=== PATIENT | female | born 1940 | race Hispanic/Latino ===

== ENCOUNTER 2016-03-27 07:57 | Day surgery (SDC) | payer MEDICARE ==
[2016-03-27] MEDS ORDERED: DIPRIVAN 10 MG/ML IV ONE ×3 (08:41→08:42)
[2016-03-27] MEDS ORDERED: NACL 0.9% 1000 ML 1,000 ML IV SCH (09:00)
[2016-03-27] MEDS ORDERED: XYLOCAINE MPF 2% ONE (09:30)
--- NOTE | 2016-03-27 09:32 | Anesthesia Consultation ---
Anesthesia Consult and Med Hx Date of service: 03/27/16 - Airway Anesthetic Teeth Evaluation: Edentulous ROM Head & Neck: Adequate Mental/Hyoid Distance: Adequate Mallampati Class: Class III Intubation Access Assessment: Probably Good - Pulmonary Exam CTA: Yes - Cardiac Exam Cardiac Exam: RRR - Pre-Operative Health Status ASA Pre-Surgery Classification: ASA3 Proposed Anesthetic Plan: MAC - Pulmonary Hx Smoking: Yes (1ppd x 52 years, now 1 pk per two weeks last 2 years) Hx Asthma: Yes (Inhaler this AM) SOB: Yes Hx Pneumonia: Yes Hx Sleep Apnea: No - Cardiovascular System Hx Hypertension: Yes (Losartan) Hx Heart Attack/AMI: No Hx Angina: Yes (NTG SL 03/26) - Central Nervous System Hx Seizures: No 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
--- NOTE | 2016-03-27 09:33 | Anesthesia Day of Surgery ---
Anesthesia Day of Surgery - Day of Surgery Patient Examined: Yes Patient H&P Reviewed: Yes Patient is NPO: Yes
[2016-03-27] MEDS ORDERED: WATER FOR IRRIG STERILE IR ONE (09:47)
--- NOTE | 2016-03-27 10:21 | Short Stay Summary ---
Short Stay Documentation Date of service: 03/27/16 - History H&P: obtained from office - Allergies and Medications Current Medications: Allergies No Known Allergies Allergy (Verified 03/26/16 12:41) Home Medications Medication Instructions Recorded Confirmed Last Taken Type Colesevelam [Welchol] 1 each PO BID 02/01/13 02/10/16 1 Day Ago History Aspirin [Aspirin TAB] 81 mg PO QDAY #30 tablet 07/22/14 02/10/16 1 Day Ago Rx Atorvastatin [Lipitor] 40 mg PO QHS #30 tab 07/22/14 02/10/16 1 Day Ago Rx Clopidogrel Bisulfate [Plavix] 75 mg PO DAILY #30 tablet 07/22/14 02/10/16 1 Day Ago Rx Cyclobenzaprine [Flexeril 10 MG 10 mg PO PRN PRN 07/22/14 02/10/16 1 Day Ago History TAB] ALBUTEROL Inhaler [Proair] 2 puff IH QID PRN 02/10/16 02/10/16 1 Day Ago History Acetaminophen [Tylenol Arthritis] 650 mg PO QID 02/10/16 02/10/16 1 Day Ago History Insulin Lispro Prot/Lispro 18 unit SQ ACHS 02/10/16 02/10/16 1 Day Ago History [HumaLOG MIX 75/25] Losartan [Cozaar] 100 mg PO DAILY 02/10/16 02/10/16 1 Day Ago History Nitroglycerin [Nitro Dur] 0.4 mg TD QDAY 02/10/16 02/10/16 1 Week Ago History Nitroglycerin [Nitrostat] 0.4 mg SL Q5M PRN 02/10/16 02/10/16 1 Week Ago History Pantoprazole [Protonix] 40 mg PO QDAY 02/10/16 02/10/16 1 Day Ago History Umeclidinium Brm/Vilanterol Tr 1 each IH QDAY 02/10/16 02/10/16 1 Day Ago History [Anoro Ellipta 62.5-25 Mcg INH] Active Medications Sodium Chloride (Nacl 0.9% 1000 Ml) 1,000 mls @ 50 mls/hr IV DIRECT JACKIE Last Admin: 03/27/16 09:03 Dose: 50 mls/hr - Brief post op/procedure progress note Date of procedure: 01/11/17 Findings: reports dictated Estimated blood loss: none Pathology: list (1. antral biopsies for h.pylori, 2. Random colon biopsies for microscopic colitis) Specimen disposition: to lab Condition: stable - Disposition Condition at discharge: Good Disposition: DISCHARGED TO HOME OR SELFCARE - Discharge Diagnoses (1) Nausea & vomiting Status: Acute (2) Chronic diarrhea Status: Acute Short Stay Discharge Plan Activity: other (no driving for 24 hours, restart Plavix after 3 days) Weight Bearing Status: Full Weight Bearing Diet: advance as tolerated
--- NOTE | 2016-03-27 10:28 | Operative Report ---
Operative Report Operative Report: Date of procedure: 03/27/2016 Procedure: Esophagogastroduodenoscopy with biopsies of the stomach antrum for H. pylori Preprocedure diagnosis: Chronic nausea vomiting and weight loss. Post procedure diagnosis: Mild erosive antral gastritis. 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 Small hiatus hernia. Distal esophagitis. Endoscopist: Dr. Cao Anesthesia: Monitored anesthesia care per anesthesia department Medications: Propofol per anesthesia. Estimated blood loss: Minimal. After careful discussion of the nature and purpose of the procedure as well as details the technique risks benefits and alternatives consent was obtained. The patient was placed in the left lateral decubitus position and medicated per anesthesia. The tip of the Holganix EQ 570 video scope was passed per orum under direct vision into the esophagus and advanced into the stomach and descending duodenum. There were 2 small AVMs approximately 1 mm in size in the second portion of the duodenum. Otherwise the descending duodenum the duodenal bulb and pylorus were symmetrical and normal. The scope was withdrawn into the stomach and the stomach then gently insufflated with air. The antrum reveals patchy erosions but no deep ulcers. There was no outlet obstruction. No retained food was noted. The stomach was further insufflated and the scope was then retroflexed and partially withdrawn. The cardia, fundus, and body of the stomach were within normal limits and easily distensible.The scope was then withdrawn in the forward position. The esophagogastric junction was at 36 cm. A small hiatus hernia was present. It was mild inflammation at the Z line area.. The esophageal body was normal throughout. The procedure was was well tolerated and the patient was observed in recovery. Impressions: Mild erosive gastritis without outlet obstruction. 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 Small hiatus hernia. Mild distal esophagitis. Plan: Begin pantoprazole. She will take this in the morning and move her Plavix to an evening regimen. The patient will call me in a week to discuss the pathology report and further management. She may need small bowel imaging to exclude a more distal partial obstruction. Electronically signed: Donn Cao MD
--- NOTE | 2016-03-27 10:30 | Operative Report ---
Operative Report Operative Report: Date of procedure: 03/27/2016 Preprocedure diagnosis: Diarrhea, chronic Post procedure diagnosis: Normal-appearing colon and terminal ileum. Procedure: Colonoscopy to the cecum with random biopsies of the colon Endoscopist: Dr. Cao Anesthesia: Monitored anesthesia care per anesthesia department Estimated blood loss: 0 Medications: Monitored anesthesia care. See separate report by anesthesia for details. After careful discussion of the nature and purpose of the procedure as well as details of the technique risks benefits and alternatives the patient gave consent. Please see recent history and physical from the office. The patient was placed in the left lateral decubitus position and medicated per anesthesia. A rectal exam was performed sphincter tone was normal there were no masses palpable. The [employer] 570 scope was passed transanally and advanced under continuous direct vision without difficulty to the cecum. The colon was well prepared. The cecum was normal. Ileocecal valve was normal in appearance. The scope was passed through the valve and the distal 5-10 cm of ileum inspected which appeared normal. The ascending colon was normal and on forward and retroflexed views. The transverse colon, descending colon, and sigmoid colon were normal. The rectum was normal on forward and retroflexed views. Random biopsies were taken throughout the colon to assess for possible microscopic colitis. The procedure was well-tolerated overall and the patient was observed in recovery. Conclusions: Normal colonoscopy to the cecum. Normal terminal ileum. Plan: Await biopsies to assess for microscopic colitis. The patient called the office in 1 week. Consider small bowel series to exclude late onset inflammatory bowel disease. Signed electronically: Donn Cao M.D.
[2016-03-27 10:44] VITALS: BP 166/82
--- NOTE | 2016-03-27 12:26 | Post Anesthesia Evaluation ---
- Post Anesthesia Evaluation Patient Participated: Yes Airway Patent: Yes Stable Respiratory Function: Yes Nausea/Vomiting: No Temp > 96.8F: Yes Pain Manageable: Yes Adequeate Hydration: Yes Anesthesia Complications: No
== END 2016-03-27 07:58 | disposition home or self-care (01) ==
LOC: GIO 07:57
PROVIDERS: ATTEND Internal Medicine Gastroenterology
DX: K52.9 Noninfective gastroenteritis and colitis, unspecified (principal); K29.50 Unspecified chronic gastritis without bleeding; K21.0 Gastro-esophageal reflux disease with esophagitis; K55.20 Angiodysplasia of colon without hemorrhage; K44.9 Diaphragmatic hernia without obstruction or gangrene; F41.9 Anxiety disorder, unspecified; M19.90 Unspecified osteoarthritis, unspecified site; J45.909 Unspecified asthma, uncomplicated; E11.9 Type 2 diabetes mellitus without complications; I10 Essential (primary) hypertension; D64.9 Anemia, unspecified; F17.210 Nicotine dependence, cigarettes, uncomplicated; Z90.710 Acquired absence of both cervix and uterus; Z90.49 Acquired absence of other specified parts of digestive tract; Z98.890 Other specified postprocedural states; Z83.49 Family history of other endocrine, nutritional and metabolic diseases; Z83.3 Family history of diabetes mellitus; Z86.73 Personal history of transient ischemic attack (TIA), and cerebral infarction without residual deficits; Z82.49 Family history of ischemic heart disease and other diseases of the circulatory system; Z80.1 Family history of malignant neoplasm of trachea, bronchus and lung; Z87.01 Personal history of pneumonia (recurrent)
CPT/HCPCS: 43239; 45380; 82962; 88305; 88342; J2704; J7030

== ENCOUNTER 2016-08-30 08:50 | Outpatient (CLI) | payer MEDICARE ==
--- NOTE | 2016-08-30 14:30 | Mammography Report ---
BILATERAL DIGITAL SCREENING MAMMOGRAM with CAD: 08/30/16 08:50:00 CLINICAL: Routine screening. COMPARISON:07/07/15 and annual mammograms going back to 2008. FINDINGS: The breasts are almost entirely fatty. Left outer asymmetry in architectural distortion on the CC view requires additional imaging. No mass or suspicious calcifications. The right breast is negative. IMPRESSION: Left asymmetry and architectural distortion requiring further workup. BI-RADS CATEGORY: 0 -- Additional Imaging Evaluation Required RECOMMENDATION: Recall for left mediolateral , exaggerated CC and spot compression CC views and left breast ultrasound if needed. ACR BI-RADS MAMMOGRAPHIC CODES: 0 = Needs additional imaging evaluation; 1 = Negative; 2 = Benign; 3 = Probably benign; 4 = Suspicious; 5 = Malignant; 6 = Known biopsy-proven malignancy COMMENT: 1. Dense breast tissue, i.e., adenosis, fibrocystic changes, etc., may obscure an underlying neoplasm. 2. Approximately 10% of cancers are not detected with mammography. 3. A negative mammography report should not delay biopsy if a clinically suspicious mass is present. COMMENT: Patient follow-up letters are generated via our [employer] application.
== END 2016-08-30 08:51 | disposition home or self-care (01) ==
LOC: MAMMO 08:50
PROVIDERS: ATTEND Internal Medicine
DX: Z12.31 Encounter for screening mammogram for malignant neoplasm of breast (principal); I20.9 Angina pectoris, unspecified; I10 Essential (primary) hypertension; J45.909 Unspecified asthma, uncomplicated; F17.200 Nicotine dependence, unspecified, uncomplicated
CPT/HCPCS: 77067; G0202

== ENCOUNTER 2016-09-05 14:40 | Outpatient (CLI) | payer MEDICARE ==
--- NOTE | 2016-09-06 08:25 | Mammography Report ---
LEFT DIGITAL DIAGNOSTIC MAMMOGRAM : 09/05/16 14:40:00 CLINICAL: Recalled for asymmetry and architectural distortion. COMPARISON:08/30/16 screening FINDINGS: ML and spot compression and CC views were performed and demonstrate no asymmetry or architectural distortion. IMPRESSION: Negative Mammogram. BI-RADS CATEGORY: 1 -- Negative RECOMMENDATION: Routine mammographic screening in one year. ACR BI-RADS MAMMOGRAPHIC CODES: 0 = Needs additional imaging evaluation; 1 = Negative; 2 = Benign; 3 = Probably benign; 4 = Suspicious; 5 = Malignant; 6 = Known biopsy-proven malignancy COMMENT: 1. Dense breast tissue, ie., adenosis, fibrocystic changes, etc., may obscure an underlying neoplasm. 2. Approximately 10% of cancers are not detected with mammography. 3. A negative mammography report should not delay biopsy if a clinically suspicious mass is present. COMMENT: Patient follow-up letters are generated via our [employer] application.
== END 2016-09-05 14:41 | disposition home or self-care (01) ==
LOC: MAMMO 14:40
PROVIDERS: ATTEND Internal Medicine
DX: R92.8 Other abnormal and inconclusive findings on diagnostic imaging of breast (principal); I10 Essential (primary) hypertension; E11.9 Type 2 diabetes mellitus without complications; E78.00 Pure hypercholesterolemia, unspecified; J45.909 Unspecified asthma, uncomplicated; D64.9 Anemia, unspecified; F17.200 Nicotine dependence, unspecified, uncomplicated
CPT/HCPCS: G0206-LT

== ENCOUNTER 2016-11-19 10:37 | Outpatient (CLI) | payer MEDICARE ==
--- NOTE | 2016-11-19 12:50 | XRay Report ---
RIGHT KNEE, 3 views: History: Multiple joint pain, right knee pain. The bony architecture is intact without evidence of fracture or dislocation. No significant soft tissue abnormality is seen. IMPRESSION: Right knee within normal limits.
--- NOTE | 2016-11-19 12:55 | XRay Report ---
BILATERAL HAND, 3 VIEWS History: Multiple joint pain, bilateral hand pain Findings: Mild osteopenia is suspected. There is no evidence for fracture, erosive joint pathology or bony destruction. Mild to moderate osteoarthritic changes are identified throughout both hands. The left third metacarpophalangeal joint is the most affected joint in the hands. The soft tissues are unremarkable. Impression: Osteopenia. Osteoarthritic changes.
--- NOTE | 2016-11-19 12:57 | XRay Report ---
BILATERAL WRISTS, 3 VIEWS History: Multiple joint pain, bilateral wrist pain. Findings: Mild osteopenia is noted. No acute osseous findings or joint pathology is identified. No ligamentous injury is suggested. The soft tissues are within normal limits. Impression: Osteopenia. Otherwise, unremarkable bilateral wrists.
--- NOTE | 2016-11-19 13:06 | XRay Report ---
CERVICAL SPINE, 5 VIEWS History: Multiple joint pain, neck pain. Findings: No comparison. Osteopenia is evident. There is moderate degenerative disc disease at C3-4, C4-5 and C5-6. No evidence for facture, bone lesion or malalignment. Mild diffuse facet arthropathy is also noted. The oblique images demonstrate no evidence for high-grade neural foraminal narrowing. The dens is intact. The prevertebral soft tissues are normal thickness. Impression: Osteopenia. Cervical spondylosis.
--- NOTE | 2016-11-20 08:08 | XRay Report ---
XRAY LUMBAR SPINE WITH OBLIQUES 5 VIEWS: 11/19/16 10:37:00 CLINICAL: Back pain. FINDINGS: Normal vertebral body height and alignment. No fracture. Disc space narrowing at L5-S1 and to a lesser degree at L4-5. Endplate sclerosis at L4-5 and L5-S1. Bilateral facet joint sclerosis from L1-2 through L5-S1 but worse from L3-4 through L5-S1. Small anterior osteophytes at L2-3, L4-5 and L5-S1. Right neural foraminal narrowing at L3-4 and L4-5. The pedicles are intact. Mild bilateral SI joint sclerosis. No erosions. Extensive calcification of the abdominal aorta and renal vasculature. Surgical clips in the right upper quadrant. IMPRESSION: 1. Bilateral facet joint arthropathy from L1-2 through L5-S1 but worse from L3-4 through L5-S1. 2. Right neural foraminal narrowing at L3-4 and L4-5. 3. L5-S1 degenerative disc disease and a lesser degree of degenerative disc disease at L4-5.
== END 2016-11-19 10:38 | disposition home or self-care (01) ==
LOC: XRAY 10:37
PROVIDERS: ATTEND Nurse Practitioner Family
DX: M51.37 Other intervertebral disc degeneration, lumbosacral region (principal); M50.31 Other cervical disc degeneration, high cervical region; M50.321 Other cervical disc degeneration at C4-C5 level; M12.88 Other specific arthropathies, not elsewhere classified, other specified site; M50.322 Other cervical disc degeneration at C5-C6 level; M85.88 Other specified disorders of bone density and structure, other site; M47.892 Other spondylosis, cervical region; M19.141 Post-traumatic osteoarthritis, right hand; M19.142 Post-traumatic osteoarthritis, left hand; I70.0 Atherosclerosis of aorta; I10 Essential (primary) hypertension; E78.00 Pure hypercholesterolemia, unspecified; E11.9 Type 2 diabetes mellitus without complications; J18.9 Pneumonia, unspecified organism; F17.200 Nicotine dependence, unspecified, uncomplicated
CPT/HCPCS: 72040; 72110

== ENCOUNTER 2016-12-16 10:15 | Outpatient (CLI) | payer MEDICARE ==
[2016-12-16 10:40] LABS: Blood Urea Nitrogen 10 mg/dL (7-17)
--- NOTE | 2016-12-16 14:48 | Magnetic Resonance Report ---
MRA ABDOMEN WITH AND WITHOUT CONTRAST History: Diarrhea. Technique: Multisequence, multiplanar MRI before and after IV gadolinium. 3-dimensional MRA. Rotational MIP imaging. Findings: No relevant comparison. This exam is slightly limited by patient breathing motion artifact. The heart is normal size. The visualized descending thoracic aorta and abdominal aorta are normal caliber with no evidence of dissection, aneurysm or stenosis. The celiac axis, SMA, SURI and bilateral single renal arteries are widely patent with less than 20% stenosis. The visualized bilateral iliac arteries are patent with less than 30% stenosis. The liver, pancreas, spleen and adrenal glands are unremarkable. Cholecystectomy changes are evident. There are multiple bilateral renal cysts. No renal mass or hydronephrosis. The bowel loops are grossly normal. No evidence for ascites, bulky adenopathy or inflammatory changes. Impression: Unremarkable MRA of the abdomen.
== END 2016-12-16 10:16 | disposition home or self-care (01) ==
LOC: MRI 10:15
PROVIDERS: ATTEND Internal Medicine Gastroenterology
DX: E11.9 Type 2 diabetes mellitus without complications (principal); N28.1 Cyst of kidney, acquired; R19.7 Diarrhea, unspecified; R63.4 Abnormal weight loss; I10 Essential (primary) hypertension; Z90.49 Acquired absence of other specified parts of digestive tract
CPT/HCPCS: 36415; 82565; 84520; A9577; C8902; 74185

== ENCOUNTER 2017-04-24 08:03 | Outpatient (CLI) | payer MEDICARE ==
--- NOTE | 2017-04-25 08:52 | PET Report ---
PET/CT:04/24/17 08:03:00 CLINICAL: Right pulmonary nodule. RADIOPHARMACEUTICAL: 13.22 mCi F18-FDG. COMPARISON: PET/CT TECHNIQUE- Following intravenous injection of F-18 FDG and an approximately 60 minute uptake period, CT and PET images from the mid skull to the upper thighs were acquired with the patient in the fasted state. No contrast was administered. The CT protocol used for this PET CT study is designed for attenuation correction and anatomic localization of PET abnormalities. This beer cooler CT is not desired to produce and cannot replace, [id number] diagnostic CT scans with specific imaging protocols for different body parts and indications. Plasma glucose at the time of this test: 141g/dl. The standardized uptake values (SUV) are normalized to patient body weight and indicate the highest activity concentration (SUV max) in a given disease site. FINDINGS: Brain--Physiologic FDG uptake in the visualized regions of the brain. Neck--Physiologic FDG uptake . Chest--Physiologic FDG uptake in mediastinal blood pool and myocardium. Lungs--No abnormal uptake. An irregular 9 mm right lobe superior segment non-activity evident lung nodule with SUV 0.9. A non-FDG avid 5 mm right middle lobe lung nodule. Pleura/pericardium--No abnormal uptake. No pleural effusion. Thoracic nodes--No abnormal uptake. No lymphadenopathy. Hepatobiliary--No abnormal uptake. Liver background SUV mean, as a reference for comparing FDG studies, is 3.1 . No liver mass. Status post cholecystectomy. Spleen--No abnormal uptake. Pancreas--No abnormal uptake. Adrenal Glands--No abnormal uptake. Kidneys/Ureters/Bladder--No abnormal uptake. Left renal cysts measuring 4.4, 2.6 and 3.7 cm. Abdominopelvic Nodes--No abnormal uptake. Bowel/Peritoneum/Mesentery--No abnormal uptake. Pelvic organs--No abnormal uptake. Status post hysterectomy. Bones/Soft Tissues--No abnormal uptake. No suspicious bone lesion. IMPRESSION- 1. Non-FDG avid right lung nodules. The largest measures 9 mm in the superior segment of the right lower lobe. Consider CT percutaneous needle biopsy of the largest nodule. 2. Status post cholecystectomy. 3. Benign left renal cyst. 4. Status post total abdominal hysterectomy.
== END 2017-04-24 08:04 | disposition home or self-care (01) ==
LOC: PET 08:03
PROVIDERS: ATTEND Internal Medicine Pulmonary Disease
DX: R91.8 Other nonspecific abnormal finding of lung field (principal); N28.1 Cyst of kidney, acquired; Z90.710 Acquired absence of both cervix and uterus; Z90.49 Acquired absence of other specified parts of digestive tract; Z79.899 Other long term (current) drug therapy
CPT/HCPCS: 78815; 82962; A9552

== ENCOUNTER 2017-07-06 19:25 | Emergency (ER) | payer MEDICARE ==
[2017-07-06 19:42] VITALS: BP 161/74
[2017-07-06 20:04] LABS: Hematocrit 38.3 % (30.3-42.9); Hemoglobin 13.4 gm/dl (10.1-14.3); Mean Corpuscular HGB Conc 35 % (30-34); Mean Corpuscular Hemoglobin 33 pg (28-32); Mean Corpuscular Volume 93 fl (79-97); Platelet Count 337 K/mm3 (140-440); Red Blood Count 4.13 M/mm3 (3.65-5.03)
[2017-07-06 20:23] LABS: Calcium 9.2 mg/dL (8.4-10.2)
--- NOTE | 2017-07-06 20:41 | XRay Report ---
FINAL REPORT EXAM: XR SPINE LUMBOSACRAL 2-3V HISTORY: back pain r/t injury TECHNIQUE: Three views lumbosacral spine Comparison: None FINDINGS: There is approximately 40 percent L3 compression of the superior endplate, chronicity is undetermined. There is straightening of the normal lumbar lordosis. There is disc space narrowing L5/S1 and to a lesser degree L4/L5. There are clips in right upper quadrant. There are multiple surgical coils throughout the bony pelvis. There is a large stool ball in the rectum. Peripheral aorta is calcified without definite aneurysm. IMPRESSION: Approximately 40 percent L3 compression fracture of the superior endplate. If patient is a candidate for kyphoplasty, recommend MRI if there are no contraindications. Lower lumbar degenerative disc disease.
[2017-07-06] MEDS ORDERED: NORCO 5/325 ONE (23:28)
[2017-07-06] MEDS ORDERED: NORCO 5/325 PO ONE ×2 (23:30→23:32)
--- NOTE | 2017-07-06 23:35 | Emergency Department Report ---
ED Back Pain/Injury HPI - General Chief Complaint: Back Pain/Injury Stated Complaint: BACK PAIN Source: patient Limitations: No Limitations - History of Present Illness Initial Comments: This is a 77-year-old white female patient of Dr. Arambula , pt has hx of jasbir benjamin, patient presents for low back pain states all week and half ago patient was seen and treated by Dr. Arambula for same patient had a lumbar demonstrating an L3 compression fracture age undetermined patient states same diagnosed by Dr. Arambula patient is pending for same with possible referral to orthopedic patient states out of pain medicine pain is now described 510 achy there is no numbness no tingling no paresthesia patient remains ambulatory to baseline per patient . There is no loss or decrease in bowel or bladder function. MD Complaint: back injury Onset/Timin -: week(s) Similar Symptoms Previously: Yes Place: home Radiation: none Severity: moderate Severity scale (0 -10): 5 Quality: aching Consistency: intermittent Improves With: other (rest) Worsens With: movement, other (bending twisting ) Context: while lifting, turning/twisting Associated Symptoms: denies: numbness, difficulty walking, difficulty urinating , incontinence, headaches - Related Data Home Medications Medication Instructions Recorded Confirmed Last Taken Colesevelam [Welchol] 1 each PO BID 02/01/13 02/10/16 1 Day Ago ~02/09/16 Cyclobenzaprine [Flexeril 10 MG 10 mg PO PRN PRN 07/22/14 02/10/16 1 Day Ago TAB] ~02/09/16 ALBUTEROL Inhaler [ProAir HFA 2 puff IH QID PRN 02/10/16 02/10/16 1 Day Ago Inhaler] ~02/09/16 Acetaminophen [Tylenol Arthritis] 650 mg PO QID 02/10/16 02/10/16 1 Day Ago ~02/09/16 Insulin Lispro Prot/Lispro 18 unit SQ ACHS 02/10/16 02/10/16 1 Day Ago [HumaLOG Mix 75/25 Vial] ~02/09/16 Losartan [Cozaar] 100 mg PO DAILY 02/10/16 02/10/16 1 Day Ago ~02/09/16 Nitroglycerin [Nitro Dur] 0.4 mg TD QDAY 02/10/16 02/10/16 1 Week Ago ~02/03/16 Nitroglycerin [Nitrostat] 0.4 mg SL Q5M PRN 02/10/16 02/10/16 1 Week Ago ~02/03/16 Umeclidinium Brm/Vilanterol Tr 1 each IH QDAY 02/10/16 02/10/16 1 Day Ago [Anoro Ellipta 62.5-25 Mcg INH] ~02/09/16 Previous Rx's Medication Instructions Recorded Last Taken Type Aspirin [Aspirin TAB] 81 mg PO QDAY #30 tablet 07/22/14 1 Day Ago Rx ~02/09/16 Atorvastatin [Lipitor] 40 mg PO QHS #30 tab 07/22/14 1 Day Ago Rx ~02/09/16 Pantoprazole [Protonix TAB] 40 mg PO QDAY #30 tab 03/27/16 1 Day Ago Rx ~02/09/16 Acetaminophen/Codeine [Tylenol 1 tab PO Q6H PRN #12 tab 07/07/17 Unknown Rx /Codeine # 3 tab] Allergies Allergy/AdvReac Type Severity Reaction Status Date / Time No Known Allergies Allergy Verified 03/26/16 12:41 ED Review of Systems ROS: Stated complaint: BACK PAIN Other details as noted in HPI Constitutional: denies: chills, fever Eyes: denies: eye pain, eye discharge, vision change ENT: denies: ear pain, throat pain Respiratory: denies: cough, shortness of breath, wheezing Cardiovascular: denies: chest pain, palpitations Endocrine: no symptoms reported Gastrointestinal: denies: abdominal pain, nausea, diarrhea Genitourinary: denies: urgency, dysuria, discharge Musculoskeletal: back pain, arthralgia. denies: joint swelling Skin: denies: rash, lesions Neurological: denies: headache, weakness, paresthesias Psychiatric: denies: anxiety, depression Hematological/Lymphatic: denies: easy bleeding, easy bruising ED Past Medical Hx - Past Medical History Hx Hypertension: Yes (Losartan) Hx Heart Attack/AMI: No Hx Diabetes: Yes Hx Arthritis: Yes Hx Seizures: No Hx Asthma: Yes (Inhaler this AM) Hx Tuberculosis: Yes Hx HIV: No - Surgical History Hx Coronary Stent: No Hx Cholecystectomy: Yes Hx Appendectomy: Yes Additional Surgical History: hernia repair x2 hemmoriod and rectal surgery. - Social History Smoking Status: Current Some Day Smoker Substance Use Type: None - Medications Home Medications: Home Medications Medication Instructions Recorded Confirmed Last Taken Type Colesevelam [Welchol] 1 each PO BID 02/01/13 02/10/16 1 Day Ago History ~02/09/16 Aspirin [Aspirin TAB] 81 mg PO QDAY #30 tablet 07/22/14 02/10/16 1 Day Ago Rx ~02/09/16 Atorvastatin [Lipitor] 40 mg PO QHS #30 tab 07/22/14 02/10/16 1 Day Ago Rx ~02/09/16 Cyclobenzaprine [Flexeril 10 MG 10 mg PO PRN PRN 07/22/14 02/10/16 1 Day Ago History TAB] ~02/09/16 ALBUTEROL Inhaler [ProAir HFA 2 puff IH QID PRN 02/10/16 02/10/16 1 Day Ago History Inhaler] ~02/09/16 Acetaminophen [Tylenol Arthritis] 650 mg PO QID 02/10/16 02/10/16 1 Day Ago History ~02/09/16 Insulin Lispro Prot/Lispro 18 unit SQ ACHS 02/10/16 02/10/16 1 Day Ago History [HumaLOG Mix 75/25 Vial] ~02/09/16 Losartan [Cozaar] 100 mg PO DAILY 02/10/16 02/10/16 1 Day Ago History ~02/09/16 Nitroglycerin [Nitro Dur] 0.4 mg TD QDAY 02/10/16 02/10/16 1 Week Ago History ~02/03/16 Nitroglycerin [Nitrostat] 0.4 mg SL Q5M PRN 02/10/16 02/10/16 1 Week Ago History ~02/03/16 Umeclidinium Brm/Vilanterol Tr 1 each IH QDAY 02/10/16 02/10/16 1 Day Ago History [Anoro Ellipta 62.5-25 Mcg INH] ~02/09/16 Pantoprazole [Protonix TAB] 40 mg PO QDAY #30 tab 03/27/16 02/10/16 1 Day Ago Rx ~02/09/16 Acetaminophen/Codeine [Tylenol 1 tab PO Q6H PRN #12 tab 07/07/17 Unknown Rx /Codeine # 3 tab] ED Physical Exam - General Limitations: No Limitations General appearance: alert, in no apparent distress - Head Head exam: Present: atraumatic, normocephalic - Eye Eye exam: Present: normal appearance - ENT ENT exam: Present: mucous membranes moist - Neck Neck exam: Present: normal inspection, full ROM. Absent: tenderness, meningismus, lymphadenopathy, thyromegaly - Respiratory Respiratory exam: Present: normal lung sounds bilaterally. Absent: respiratory distress, wheezes, stridor, chest wall tenderness - Cardiovascular Cardiovascular Exam: Present: regular rate, normal rhythm, normal heart sounds. Absent: systolic murmur, diastolic murmur, rubs, gallop - GI/Abdominal GI/Abdominal exam: Present: soft, normal bowel sounds. Absent: distended, tenderness, guarding, rebound, rigid, organomegaly, mass, bruit, pulsatile mass , hernia - Rectal Rectal exam: Present: deferred - Extremities Exam Extremities exam: Present: normal inspection, full ROM, normal capillary refill - Back Exam Back exam: Present: tenderness, paraspinal tenderness, vertebral tenderness ( mild preproducible posterior vertebral tenderness lumbar spine mild paraspinus muscle tenderness there is no deformity no swelling no ecchymois no weakness pos straight leg right there is no saddle numbness or weakness pt is ambulatory gait is steady ). Absent: CVA tenderness (R), CVA tenderness (L), muscle spasm , rash noted - Expanded Back Exam Expanded Back exam: Absent: saddle anesthesia Back exam: Positive Straight Leg Raise: Right, Negative Straight Leg Raising: Left - Neurological Exam Neurological exam: Present: alert, oriented X3, CN II-XII intact, normal gait, reflexes normal - Expanded Neurological Exam Expanded Patient oriented to: Present: person, place, time Speech: Present: fluid speech Cranial nerves: EOM's Intact: Normal, Gag Reflex: Normal, Tongue Deviation: Normal, Nystagmus: Normal, Facial Sensation: Normal Cerebellar function: Finger to Nose: Normal, Heel to Trinh: Normal, Romberg: Normal Upper motor neuron: Bruno Neglect: Normal, Pronator Drift: Normal, Babinski Sign : Normal, Sensory Extinction: Normal Sensory exam: Upper Extremity Light Touch: Normal, Upper Extremity Pin Prick: Normal, Upper Extremity Temperature: Normal, UE 2 Point Discrimination: Normal, Lower Extremity Light Touch: Normal, Lower Extremity Pin Prick: Normal, Lower Extremity Temperature: Normal, LE 2 Point Discrimination: Normal Motor strength exam: RUE: 5, LUE: 5, RLE: 5, LLE: 5 DTR: bicep (R): 2+, bicep (L): 2+, tricep (R): 2+, tricep (L): 2+, knee (R): 2+ , knee (L): 2+, ankle (R): 2+, ankle (L): 2+ Best Eye Response ([place]): (4) open spontaneously Best Motor Response (Carol): (6) obeys commands Best Verbal Response ([place]): (5) oriented Carol Total: 15 - Psychiatric Psychiatric exam: Present: normal affect, normal mood - Skin Skin exam: Present: warm, dry, intact, normal color. Absent: rash ED Course Vital Signs 07/06/17 07/06/17 19:35 19:41 Temperature 98.2 F 98.2 F Pulse Rate 98 H 100 H Respiratory 18 18 Rate Blood Pressure 161/74 161/74 O2 Sat by Pulse 96 96 Oximetry ED Medical Decision Making - Lab Data Result diagrams: 07/06/17 19:50 07/06/17 19:50 Laboratory Tests 07/06/17 07/06/17 19:50 19:50 WBC 9.0 RBC 4.13 Hgb 13.4 Hct 38.3 MCV 93 MCH 33 H MCHC 35 H RDW 13.0 L Plt Count 337 Sodium 139 Potassium 5.1 H Chloride 100.0 Carbon Dioxide 28 Anion Gap 16 BUN 15 Creatinine 1.0 Estimated GFR 54 BUN/Creatinine Ratio 15 Glucose 94 Calcium 9.2 Laboratory Tests 07/06/17 07/06/17 07/06/17 19:50 19:50 23:27 WBC 9.0 RBC 4.13 Hgb 13.4 Hct 38.3 MCV 93 MCH 33 H MCHC 35 H RDW 13.0 L Plt Count 337 Sodium 139 Potassium 5.1 H Chloride 100.0 Carbon Dioxide 28 Anion Gap 16 BUN 15 Creatinine 1.0 Estimated GFR 54 BUN/Creatinine Ratio 15 Glucose 94 Calcium 9.2 Urine Color Yellow Urine Turbidity Clear Urine pH 6.0 Ur Specific [place] 1.013 Urine Protein 100 mg/dl Urine Glucose (UA) Neg Urine Ketones Neg Urine Blood Neg Urine Nitrite Neg Urine Bilirubin Neg Urine Urobilinogen < 2.0 Ur Leukocyte Esterase Tr Urine WBC (Auto) 4.0 Urine RBC (Auto) 8.0 U Epithel Cells (Auto) < 1.0 Urine Mucus Few - Radiology Data Radiology results: report reviewed, image reviewed interpreted by me: L3 Compression Fx 40% Superior endplate age undertermined, chronic per patient, DJD, L4 and L5 - Medical Decision Making The patient did joint diseases chronic as well as decreased pacing in her lower back. The patient patient has follow-up with Dr. Arambula in 3 days plan was to follow-up with orthopedic surgery on exam no cauda equina no saddle numbness there is no weakness no paresthesia patient is ambulatory gait is steady there has been no loss or decrease in bowel or bladder function plan hydrocodone by mouth when necessary pain following orthopedic surgery as scheduled as well as Dr. Arambula as scheduled in 2 days patient given strict instructions to return to ED if problems with bowel or bladder any new numbness tingling increasing pain or inability to ambulate the patient has been verbalizes understanding and agreement with same pain is now 210 after Lortab by mouth given in ED patient will be DC'd home in stable condition at this time. pt again reiterates that she cannot stay in hospital or be admitted as she must care for son and at home, will order MRI outpatient pt agrees to return for study tomorrow and follow up with Dr. Arambula pcp and ortho dr Nevarez pt is a/o x 3 ambulatory with jose guadalupe barrios this time, Critical care attestation.: If time is entered above; I have spent that time in minutes in the direct care of this critically ill patient, excluding procedure time. ED Disposition Clinical Impression: DJD (degenerative joint disease), lumbosacral Lumbar strain Qualifiers: Encounter type: initial encounter Qualified Code(s): S39.012A - Strain of muscle, fascia and tendon of lower back, initial encounter Compression fx, lumbar spine Qualifiers: Encounter type: initial encounter Lumbar vertebra fracture level: L3 Fracture type: closed Qualified Code(s): S32.030A - Wedge compression fracture of third lumbar vertebra, initial encounter for closed fracture Chronic low back pain Qualifiers: Back pain laterality: right Sciatica presence: without sciatica Qualified Code( s): M54.5 - Low back pain; G89.29 - Other chronic pain Disposition: DC-01 TO HOME OR SELFCARE Is pt being admited?: No Does the pt Need Aspirin: No Condition: Good Instructions: Low Back Strain (ED), Vertebral Compression Fracture (ED), Degenerative Disc Disease (ED) Prescriptions: Acetaminophen/Codeine [Tylenol /Codeine # 3 tab] 1 tab PO Q6H PRN #12 tab PRN Reason: pain Referrals: FRANSISCO ARAMBULA JR, MD [Staff Physician] - 3-5 Days JAZZY NEVAREZ MD [Staff Physician] - 3-5 Days Forms: Work/School Release Form(ED) Time of Disposition: 00:36
[2017-07-06 23:56] LABS: Bilirubin,Urine NEG (Negative); Blood,Urine NEG (Negative); Color,Urine Yellow (Yellow); Mucus,Urine FEW /HPF; Urobilinogen,Urine < 2.0 mg/dL (<2.0)
== END 2017-07-07 00:40 | disposition home or self-care (01) ==
LOC: ED 19:25
DX: S32.030A Wedge compression fracture of third lumbar vertebra, initial encounter for closed fracture (principal); S39.012A Strain of muscle, fascia and tendon of lower back, initial encounter; G89.29 Other chronic pain; E11.9 Type 2 diabetes mellitus without complications; M19.90 Unspecified osteoarthritis, unspecified site; J45.909 Unspecified asthma, uncomplicated; F17.200 Nicotine dependence, unspecified, uncomplicated; Z90.49 Acquired absence of other specified parts of digestive tract; X50.0XXA Overexertion from strenuous movement or load, initial encounter; Y93.89 Activity, other specified; Y92.89 Other specified places as the place of occurrence of the external cause; Y99.8 Other external cause status
CPT/HCPCS: 36415; 72100; 80048; 81001; 85027; 99284

== ENCOUNTER 2017-10-02 13:14 | Outpatient (CLI) | payer MEDICARE ==
--- NOTE | 2017-10-03 08:00 | Magnetic Resonance Report ---
MRI LUMBAR SPINE WITHOUT CONTRAST HISTORY: Lumbar back pain, fracture. TECHNIQUE: axial T1, T2. sagittal T1,T2, STIR. COMPARISON: Lumbar spine films dated 10/05/17. FINDINGS: The conus terminates at L1-2. No signal abnormality or mass. The superior endplate fracture at L3 is again identified with loss of height measuring approximately 20%. Mild bone marrow edema is identified at the fracture site and the pedicles of L3. This has the appearance of a subacute healing fracture although fracture lines are still vaguely evident. It appears stable since the lumbar spine films dated 07/06/17. No additional fracture is identified. There are diffuse degenerative disc findings and facet arthropathy and hypertrophy of the ligamentum flavum. Disc space narrowing is most pronounced at L4-5 where Modic type II endplate changes are noted. L1-2: No significant abnormality with the disc. Minimal facet arthropathy. Normal ligamentum flavum. No stenosis. L2-3: Minimal degenerative anterolisthesis is identified measuring 2-3 mm. A mild diffuse posterior bulging disc is identified. Moderate facet arthropathy and hypertrophy of the ligamentum flavum. No evidence for retropulsion of bony fragments into the canal. These findings result in moderate to severe central canal stenosis measuring 6 mm in AP dimension. Bilateral neural foraminal narrowing is estimated at 50%. The right side is slightly more affected. L3-4: A moderate posterior bulging disc lateralizes to the right side. There is moderate to severe facet arthropathy and hypertrophy of the ligamentum flavum. Mild to moderate central canal narrowing measures 7.2 mm in AP dimension. There is severe right neural foraminal narrowing measuring 75% or greater. Left neural foraminal narrowing is estimated at 50%. L4-5: A moderate to severe posterior bulging disc lateralizes to the left side. There is moderate facet arthropathy and hypertrophy of the ligamentum flavum. Mild central canal narrowing measures 9 mm in AP dimension. There is severe left neural foraminal narrowing measuring greater than 75%. No right neural foraminal narrowing. L5-S1: A mild posterior bulging disc is identified. Mild facet arthropathy. Normal ligamentum flavum. No central canal stenosis. Bilateral neural foraminal narrowing is estimated at 50%. IMPRESSION: Healing L3 fracture as outlined above. This fracture appears stable since the lumbar spine films dated 4/22/18. Moderate to severe multilevel lumbar spondylosis as outlined above.
== END 2017-10-02 13:15 | disposition home or self-care (01) ==
LOC: MRI 13:14
PROVIDERS: ATTEND Nurse Practitioner Family
DX: M47.816 Spondylosis without myelopathy or radiculopathy, lumbar region (principal); I10 Essential (primary) hypertension; E78.00 Pure hypercholesterolemia, unspecified; J45.909 Unspecified asthma, uncomplicated; D64.9 Anemia, unspecified; F41.9 Anxiety disorder, unspecified; F32.9 Major depressive disorder, single episode, unspecified; F17.219 Nicotine dependence, cigarettes, with unspecified nicotine-induced disorders; Z90.710 Acquired absence of both cervix and uterus
CPT/HCPCS: 72148

== ENCOUNTER 2017-10-17 10:45 | Outpatient (CLI) | payer MEDICARE ==
--- NOTE | 2017-10-17 13:16 | Mammography Report ---
BILATERAL DIGITAL SCREENING MAMMOGRAM with CAD: 10/17/17 10:45:00 CLINICAL: Routine screening. COMPARISON:08/30/16 FINDINGS: The breasts are almost entirely fatty. No mass, architectural distortion or suspicious calcifications. IMPRESSION: No mammographic evidence of malignancy. BI-RADS CATEGORY: 1 - - Negative RECOMMENDATION: Routine mammographic screening in one year. COMMENT: Patient follow-up letters are generated by our [email or web address] application.
== END 2017-10-17 10:46 | disposition home or self-care (01) ==
LOC: MAMMO 10:45
PROVIDERS: ATTEND Internal Medicine
DX: Z12.31 Encounter for screening mammogram for malignant neoplasm of breast (principal); I63.9 Cerebral infarction, unspecified; I10 Essential (primary) hypertension; J45.909 Unspecified asthma, uncomplicated; E78.00 Pure hypercholesterolemia, unspecified; K21.9 Gastro-esophageal reflux disease without esophagitis; E11.9 Type 2 diabetes mellitus without complications; M19.90 Unspecified osteoarthritis, unspecified site; F32.9 Major depressive disorder, single episode, unspecified; F41.9 Anxiety disorder, unspecified; F17.210 Nicotine dependence, cigarettes, uncomplicated; Z90.710 Acquired absence of both cervix and uterus; Z90.89 Acquired absence of other organs; Z90.49 Acquired absence of other specified parts of digestive tract
CPT/HCPCS: 77067

== ENCOUNTER 2018-03-30 16:00 | Inpatient (IN) | payer MEDICARE ==
[2018-03-30] MEDS ORDERED: NACL 0.9% 250ML 250 ML IV ONE (17:31)
[2018-03-30] MEDS ORDERED: PROVENTIL IH ONE (17:31)
[2018-03-30] MEDS ORDERED: ATROVENT IH ONE (17:31)
--- NOTE | 2018-03-30 17:32 | Emergency Department Report ---
ED General Adult HPI - General Chief complaint: Dyspnea/Respdistress Stated complaint: SHORTNESS OF BREATH Time Seen by Provider: 03/30/18 17:23 Source: patient, EMS (ems notes not available at time of chart dictation), RN notes reviewed, old records reviewed Mode of arrival: Stretcher Limitations: Physical Limitation - History of Present Illness Initial comments: Primary care DrTolu: Armnai Miguel Pulmonology: Dr. Jeff Hamilton Past medical history: Anxiety, arthritis, diabetes, hypertension, appendectomy, cholecystectomy, hysterectomy, bladder surgery, COPD This is a 77-year-old female, presents to the ER with cough, wheezing, shortness of breath, malaise and fatigue. Symptoms present for a week and a half to 2 weeks. They're constant. They're painless. There were some physical exertion. It decreased with rest. Patient has subjective fevers and chills. Reports that she got her influenza vaccination. Denies DVT, pulmonary embolus risk factors. Contacted 911, EMS services activated, given the patient albuterol, steroids, magnesium in the field. She is still having shortness of breath, wheezing and malaise. -: Gradual, days(s) Consistency: constant Improves with: rest Worsens with: movement Associated Symptoms: cough, fever/chills, loss of appetite, malaise, shortness of breath, weakness. denies: confusion, chest pain, diaphoresis, headaches, nausea/vomiting, rash, seizure, syncope - Related Data Home Medications Medication Instructions Recorded Confirmed Last Taken RX: Colesevelam [Welchol] 1 each PO BID 02/01/13 03/30/18 1 Day Ago ~02/09/16 RX: Cyclobenzaprine [Flexeril 10 10 mg PO PRN PRN 07/22/14 03/30/18 1 Day Ago MG TAB] ~02/09/16 RX: ALBUTEROL Inhaler (OR & NICU) 2 puff IH QID PRN 02/10/16 03/30/18 1 Day Ago [ProAir HFA Inhaler] ~02/09/16 RX: Acetaminophen [Tylenol 650 mg PO QID 02/10/16 03/30/18 1 Day Ago Arthritis] ~02/09/16 RX: Insulin Lispro Prot/Lispro 18 unit SQ ACHS 02/10/16 03/30/18 1 Day Ago [HumaLOG Mix 75/25 Vial] ~02/09/16 RX: Losartan [Cozaar] 100 mg PO DAILY 02/10/16 03/30/18 1 Day Ago ~02/09/16 RX: Nitroglycerin [Nitro Dur] 0.4 mg TD QDAY 02/10/16 03/30/18 1 Week Ago ~02/03/16 RX: Nitroglycerin [Nitrostat] 0.4 mg SL Q5M PRN 02/10/16 03/30/18 1 Week Ago ~02/03/16 RX: Umeclidinium Brm/Vilanterol Tr 1 each IH QDAY 02/10/16 03/30/18 1 Day Ago [Anoro Ellipta 62.5-25 Mcg INH] ~02/09/16 Previous Rx's Medication Instructions Recorded Last Taken Type RX: Aspirin [Aspirin TAB] 81 mg PO QDAY #30 tablet 07/22/14 1 Day Ago Rx ~02/09/16 RX: Atorvastatin [Lipitor] 40 mg PO QHS #30 tab 07/22/14 1 Day Ago Rx ~02/09/16 RX: Pantoprazole [Protonix TAB] 40 mg PO QDAY #30 tab 03/27/16 1 Day Ago Rx ~02/09/16 Acetaminophen/Codeine [Tylenol 1 tab PO Q6H PRN #12 tab 07/07/17 Unknown Rx /Codeine # 3 tab] Allergies Allergy/AdvReac Type Severity Reaction Status Date / Time No Known Allergies Allergy Verified 03/26/16 12:41 ED Review of Systems ROS: Stated complaint: SHORTNESS OF BREATH Other details as noted in HPI Constitutional: fever, malaise, weakness Eyes: denies: eye discharge Respiratory: cough, shortness of breath, wheezing Cardiovascular: denies: chest pain Gastrointestinal: constipation. denies: abdominal pain Genitourinary: denies: dysuria Musculoskeletal: denies: back pain Neurological: weakness Psychiatric: anxiety ED Past Medical Hx - Past Medical History Previous Medical History?: Yes Hx Hypertension: Yes (Losartan) Hx Heart Attack/AMI: No Hx Diabetes: Yes Hx Arthritis: Yes Hx Seizures: No Hx Asthma: Yes (Inhaler this AM) Hx Tuberculosis: Yes Hx HIV: No - Surgical History Past Surgical History?: Yes Hx Coronary Stent: No Hx Cholecystectomy: Yes Hx Appendectomy: Yes Additional Surgical History: hernia repair x2 hemmoriod and rectal surgery. - Social History Smoking Status: Current Every Day Smoker Substance Use Type: None - Medications Home Medications: Home Medications Medication Instructions Recorded Confirmed Last Taken Type RX: Colesevelam [Welchol] 1 each PO BID 02/01/13 03/30/18 1 Day Ago History ~02/09/16 RX: Aspirin [Aspirin TAB] 81 mg PO QDAY #30 tablet 07/22/14 03/30/18 1 Day Ago Rx ~02/09/16 RX: Atorvastatin [Lipitor] 40 mg PO QHS #30 tab 07/22/14 03/30/18 1 Day Ago Rx ~02/09/16 RX: Cyclobenzaprine [Flexeril 10 10 mg PO PRN PRN 07/22/14 03/30/18 1 Day Ago History MG TAB] ~02/09/16 RX: ALBUTEROL Inhaler (OR & NICU) 2 puff IH QID PRN 02/10/16 03/30/18 1 Day Ago History [ProAir HFA Inhaler] ~02/09/16 RX: Acetaminophen [Tylenol 650 mg PO QID 02/10/16 03/30/18 1 Day Ago History Arthritis] ~02/09/16 RX: Insulin Lispro Prot/Lispro 18 unit SQ ACHS 02/10/16 03/30/18 1 Day Ago History [HumaLOG Mix 75/25 Vial] ~02/09/16 RX: Losartan [Cozaar] 100 mg PO DAILY 02/10/16 03/30/18 1 Day Ago History ~02/09/16 RX: Nitroglycerin [Nitro Dur] 0.4 mg TD QDAY 02/10/16 03/30/18 1 Week Ago Histo ry ~02/03/16 RX: Nitroglycerin [Nitrostat] 0.4 mg SL Q5M PRN 02/10/16 03/30/18 1 Week Ago Hi story ~02/03/16 RX: Umeclidinium Brm/Vilanterol Tr 1 each IH QDAY 02/10/16 03/30/18 1 Day Ago History [Anoro Ellipta 62.5-25 Mcg INH] ~02/09/16 RX: Pantoprazole [Protonix TAB] 40 mg PO QDAY #30 tab 03/27/16 03/30/18 1 Day Ago Rx ~02/09/16 Acetaminophen/Codeine [Tylenol 1 tab PO Q6H PRN #12 tab 07/07/17 03/30/18 Unknown Rx /Codeine # 3 tab] ED Physical Exam - General Limitations: No Limitations General appearance: alert, in distress - Head Head exam: Present: atraumatic, normocephalic - Eye Eye exam: Present: normal appearance, EOMI. Absent: nystagmus - ENT ENT exam: Present: normal exam, normal orophraynx, mucous membranes moist, normal external ear exam - Neck Neck exam: Present: normal inspection, full ROM. Absent: tenderness, meningismus - Respiratory Respiratory exam: Present: respiratory distress, wheezes, rhonchi - Cardiovascular Cardiovascular Exam: Present: normal rhythm, tachycardia, normal heart sounds. Absent: systolic murmur, diastolic murmur, rubs, gallop - GI/Abdominal GI/Abdominal exam: Present: soft. Absent: distended, tenderness, guarding, rebound, rigid, pulsatile mass - Extremities Exam Extremities exam: Present: normal inspection (chronic-appearing ecchymosis noted in the right upper extremity, patient states that this is subacute" I bruise easily."), other (2+ pulses noted in the bilateral upper, lower extremities. Co mpartments soft. No long bony tenderness. The pelvis is stable.). Absent: pedal edema, calf tenderness - Back Exam Back exam: Present: normal inspection, full ROM. Absent: paraspinal tenderness, vertebral tenderness - Neurological Exam Neurological exam: Present: alert, oriented X3, other (2+ pulses noted in the bilateral upper, lower extremities. Compartments soft. No long bony tenderness. The pelvis is stable.). Absent: motor sensory deficit - Psychiatric Psychiatric exam: Present: anxious - Skin Skin exam: Present: warm, dry, intact, normal color. Absent: rash ED Course Vital Signs 03/30/18 03/30/18 03/30/18 16:58 17:00 17:03 Temperature 98.1 F Pulse Rate 110 H Respiratory 26 H Rate Blood Pressure 162/134 162/134 143/77 O2 Sat by Pulse 100 100 Oximetry 03/30/18 03/30/18 03/30/18 17:16 17:30 17:46 Temperature Pulse Rate 104 H 106 H 106 H Respiratory 23 16 16 Rate Blood Pressure 143/77 162/134 162/134 O2 Sat by Pulse 100 100 100 Oximetry 03/30/18 03/30/18 03/30/18 18:00 18:16 18:30 Temperature Pulse Rate 103 H 103 H 105 H Respiratory 21 18 19 Rate Blood Pressure 129/63 129/63 129/63 O2 Sat by Pulse 100 100 100 Oximetry 03/30/18 03/30/18 03/30/18 18:46 19:00 19:16 Temperature Pulse Rate 104 H 103 H 102 H Respiratory 19 18 13 Rate Blood Pressure 129/63 112/52 112/52 O2 Sat by Pulse 97 86 96 Oximetry 03/30/18 03/30/18 03/30/18 19:30 19:46 20:00 Temperature Pulse Rate 104 H Respiratory 19 Rate Blood Pressure 112/52 112/52 112/52 O2 Sat by Pulse 97 97 97 Oximetry 03/30/18 03/30/18 03/30/18 20:16 20:30 20:46 Temperature Pulse Rate 97 H 100 H Respiratory 17 20 Rate Blood Pressure 150/71 150/71 150/71 O2 Sat by Pulse 96 91 97 Oximetry 03/30/18 03/30/18 03/30/18 21:00 21:16 21:30 Temperature Pulse Rate 101 H Respiratory 21 25 H Rate Blood Pressure 138/74 138/74 150/71 O2 Sat by Pulse 95 96 91 Oximetry 03/30/18 03/30/18 03/30/18 21:46 22:43 23:03 Temperature 97.6 F Pulse Rate 99 H Respiratory 19 18 Rate Blood Pressure 150/71 134/73 O2 Sat by Pulse 92 98 Oximetry - Reevaluation(s) Reevaluation #1: 03/30/18 21:20 Lab Results 03/30/18 03/30/18 03/30/18 Range/Units 17:24 17:24 17:46 WBC 6.8 (4.5-11.0) K/mm3 RBC 3.79 (3.65-5.03) M/mm3 Hgb 11.4 (10.1-14.3) gm/dl Hct 34.5 (30.3-42.9) % MCV 91 (79-97) fl MCH 30 (28-32) pg MCHC 33 (30-34) % RDW 16.2 H (13.2-15.2) % Plt Count 335 (140-440) K/mm3 Lymph % (Auto) 7.1 L (13.4-35.0) % Gregg % (Auto) 2.7 (0.0-7.3) % Eos % (Auto) 0.1 (0.0-4.3) % Baso % (Auto) 0.3 (0.0-1.8) % Lymph # 0.5 L (1.2-5.4) K/mm3 Gregg # 0.2 (0.0-0.8) K/mm3 Eos # 0.0 (0.0-0.4) K/mm3 Baso # 0.0 (0.0-0.1) K/mm3 Seg Neutrophils % 89.8 H (40.0-70.0) % Seg Neutrophils # 6.1 (1.8-7.7) K/mm3 PT 13.4 (12.2-14.9) Sec. INR 0.98 (0.87-1.13) Sodium 136 L (137-145) mmol/L Potassium 3.9 (3.6-5.0) mmol/L Chloride 96.8 L (98-107) mmol/L Carbon Dioxide 29 (22-30) mmol/L Anion Gap 14 mmol/L BUN 17 (7-17) mg/dL Creatinine 0.7 (0.7-1.2) mg/dL Estimated GFR > 60 ml/min BUN/Creatinine Ratio 24 % Glucose 110 H (65-100) mg/dL Lactic Acid (0.7-2.0) mmol/L Calcium 9.0 (8.4-10.2) mg/dL Magnesium (1.7-2.3) mg/dL Total Creatine Kinase (30-135) units/L Urine Color (Yellow) Urine Turbidity (Clear) Urine pH (5.0-7.0) Ur Specific [place] (1.003-1.030) Urine Protein (Negative) mg/dL Urine Glucose (UA) (Negative) mg/dL Urine Ketones (Negative) mg/dL Urine Blood (Negative) Urine Nitrite (Negative) Urine Bilirubin (Negative) Urine Urobilinogen (<2.0) mg/dL Ur Leukocyte Esterase (Negative) Urine WBC (Auto) (0.0-6.0) /HPF Urine RBC (Auto) (0.0-6.0) /HPF U Epithel Cells (Auto) (0-13.0) /HPF Influenza A (Rapid) (Negative) Influenza B (Rapid) (Negative) 03/30/18 03/30/18 03/30/18 Range/Units 17:46 17:55 19:13 WBC (4.5-11.0) K/mm3 RBC (3.65-5.03) M/mm3 Hgb (10.1-14.3) gm/dl Hct (30.3-42.9) % MCV (79-97) fl MCH (28-32) pg MCHC (30-34) % RDW (13.2-15.2) % Plt Count (140-440) K/mm3 Lymph % (Auto) (13.4-35.0) % Gregg % (Auto) (0.0-7.3) % Eos % (Auto) (0.0-4.3) % Baso % (Auto) (0.0-1.8) % Lymph # (1.2-5.4) K/mm3 Gregg # (0.0-0.8) K/mm3 Eos # (0.0-0.4) K/mm3 Baso # (0.0-0.1) K/mm3 Seg Neutrophils % (40.0-70.0) % Seg Neutrophils # (1.8-7.7) K/mm3 PT (12.2-14.9) Sec. INR (0.87-1.13) Sodium (137-145) mmol/L Potassium (3.6-5.0) mmol/L Chloride (98-107) mmol/L Carbon Dioxide (22-30) mmol/L Anion Gap mmol/L BUN (7-17) mg/dL Creatinine (0.7-1.2) mg/dL Estimated GFR ml/min BUN/Creatinine Ratio % Glucose (65-100) mg/dL Lactic Acid 1.50 (0.7-2.0) mmol/L Calcium (8.4-10.2) mg/dL Magnesium 2.30 (1.7-2.3) mg/dL Total Creatine Kinase 97 (30-135) units/L Urine Color Yellow (Yellow) Urine Turbidity Clear (Clear) Urine pH 5.0 (5.0-7.0) Ur Specific [place] 1.012 (1.003-1.030) Urine Protein 100 mg/dl (Negative) mg/dL Urine Glucose (UA) Neg (Negative) mg/dL Urine Ketones Neg (Negative) mg/dL Urine Blood Neg (Negative) Urine Nitrite Neg (Negative) Urine Bilirubin Neg (Negative) Urine Urobilinogen < 2.0 (<2.0) mg/dL Ur Leukocyte Esterase Neg (Negative) Urine WBC (Auto) 3.0 (0.0-6.0) /HPF Urine RBC (Auto) 5.0 (0.0-6.0) /HPF U Epithel Cells (Auto) 1.0 (0-13.0) /HPF Influenza A (Rapid) (Negative) Influenza B (Rapid) (Negative) 03/30/18 Range/Units 19:13 WBC (4.5-11.0) K/mm3 RBC (3.65-5.03) M/mm3 Hgb (10.1-14.3) gm/dl Hct (30.3-42.9) % MCV (79-97) fl MCH (28-32) pg MCHC (30-34) % RDW (13.2-15.2) % Plt Count (140-440) K/mm3 Lymph % (Auto) (13.4-35.0) % Gregg % (Auto) (0.0-7.3) % Eos % (Auto) (0.0-4.3) % Baso % (Auto) (0.0-1.8) % Lymph # (1.2-5.4) K/mm3 Gregg # (0.0-0.8) K/mm3 Eos # (0.0-0.4) K/mm3 Baso # (0.0-0.1) K/mm3 Seg Neutrophils % (40.0-70.0) % Seg Neutrophils # (1.8-7.7) K/mm3 PT (12.2-14.9) Sec. INR (0.87-1.13) Sodium (137-145) mmol/L Potassium (3.6-5.0) mmol/L Chloride (98-107) mmol/L Carbon Dioxide (22-30) mmol/L Anion Gap mmol/L BUN (7-17) mg/dL Creatinine (0.7-1.2) mg/dL Estimated GFR ml/min BUN/Creatinine Ratio % Glucose (65-100) mg/dL Lactic Acid (0.7-2.0) mmol/L Calcium (8.4-10.2) mg/dL Magnesium (1.7-2.3) mg/dL Total Creatine Kinase (30-135) units/L Urine Color (Yellow) Urine Turbidity (Clear) Urine pH (5.0-7.0) Ur Specific [place] (1.003-1.030) Urine Protein (Negative) mg/dL Urine Glucose (UA) (Negative) mg/dL Urine Ketones (Negative) mg/dL Urine Blood (Negative) Urine Nitrite (Negative) Urine Bilirubin (Negative) Urine Urobilinogen (<2.0) mg/dL Ur Leukocyte Esterase (Negative) Urine WBC (Auto) (0.0-6.0) /HPF Urine RBC (Auto) (0.0-6.0) /HPF U Epithel Cells (Auto) (0-13.0) /HPF Influenza A (Rapid) Negative (Negative) Influenza B (Rapid) Negative (Negative) Vital Signs 03/30/18 03/30/18 03/30/18 16:58 17:00 17:03 Temperature 98.1 F Pulse Rate 110 H Respiratory 26 H Rate Blood Pressure 162/134 162/134 143/77 O2 Sat by Pulse 100 100 Oximetry 03/30/18 03/30/18 03/30/18 17:16 17:30 17:46 Temperature Pulse Rate 104 H 106 H 106 H Respiratory 23 16 16 Rate Blood Pressure 143/77 162/134 162/134 O2 Sat by Pulse 100 100 100 Oximetry 03/30/18 03/30/18 03/30/18 18:00 18:16 18:30 Temperature Pulse Rate 103 H 103 H 105 H Respiratory 21 18 19 Rate Blood Pressure 129/63 129/63 129/63 O2 Sat by Pulse 100 100 100 Oximetry 03/30/18 03/30/18 03/30/18 18:46 19:00 19:16 Temperature Pulse Rate 104 H 103 H 102 H Respiratory 19 18 13 Rate Blood Pressure 129/63 112/52 112/52 O2 Sat by Pulse 97 86 96 Oximetry 03/30/18 19:30 Temperature Pulse Rate 104 H Respiratory 19 Rate Blood Pressure 112/52 O2 Sat by Pulse 97 Oximetry Reevaluation #2: 03/30/18 21:20 Hospital physician, Dr. Pedraza, accepts to the medical service ED Medical Decision Making - Lab Data Result diagrams: 03/30/18 17:24 03/30/18 17:24 Vital Signs 03/30/18 17:03 Temperature 98.1 F Pulse Rate 110 H Respiratory 26 H Rate Blood Pressure 143/77 O2 Sat by Pulse 100 Oximetry Lab Results 03/30/18 03/30/18 03/30/18 Range/Units 17:24 17:24 17:46 WBC 6.8 (4.5-11.0) K/mm3 RBC 3.79 (3.65-5.03) M/mm3 Hgb 11.4 (10.1-14.3) gm/dl Hct 34.5 (30.3-42.9) % MCV 91 (79-97) fl MCH 30 (28-32) pg MCHC 33 (30-34) % RDW 16.2 H (13.2-15.2) % Plt Count 335 (140-440) K/mm3 Lymph % (Auto) 7.1 L (13.4-35.0) % Gregg % (Auto) 2.7 (0.0-7.3) % Eos % (Auto) 0.1 (0.0-4.3) % Baso % (Auto) 0.3 (0.0-1.8) % Lymph # 0.5 L (1.2-5.4) K/mm3 Gregg # 0.2 (0.0-0.8) K/mm3 Eos # 0.0 (0.0-0.4) K/mm3 Baso # 0.0 (0.0-0.1) K/mm3 Seg Neutrophils % 89.8 H (40.0-70.0) % Seg Neutrophils # 6.1 (1.8-7.7) K/mm3 PT 13.4 (12.2-14.9) Sec. INR 0.98 (0.87-1.13) Sodium 136 L (137-145) mmol/L Potassium 3.9 (3.6-5.0) mmol/L Chloride 96.8 L (98-107) mmol/L Carbon Dioxide 29 (22-30) mmol/L Anion Gap 14 mmol/L BUN 17 (7-17) mg/dL Creatinine 0.7 (0.7-1.2) mg/dL Estimated GFR > 60 ml/min BUN/Creatinine Ratio 24 % Glucose 110 H (65-100) mg/dL Lactic Acid (0.7-2.0) mmol/L Calcium 9.0 (8.4-10.2) mg/dL Magnesium (1.7-2.3) mg/dL Total Creatine Kinase (30-135) units/L 03/30/18 03/30/18 Range/Units 17:46 17:55 WBC (4.5-11.0) K/mm3 RBC (3.65-5.03) M/mm3 Hgb (10.1-14.3) gm/dl Hct (30.3-42.9) % MCV (79-97) fl MCH (28-32) pg MCHC (30-34) % RDW (13.2-15.2) % Plt Count (140-440) K/mm3 Lymph % (Auto) (13.4-35.0) % Gregg % (Auto) (0.0-7.3) % Eos % (Auto) (0.0-4.3) % Baso % (Auto) (0.0-1.8) % Lymph # (1.2-5.4) K/mm3 Gregg # (0.0-0.8) K/mm3 Eos # (0.0-0.4) K/mm3 Baso # (0.0-0.1) K/mm3 Seg Neutrophils % (40.0-70.0) % Seg Neutrophils # (1.8-7.7) K/mm3 PT (12.2-14.9) Sec. INR (0.87-1.13) Sodium (137-145) mmol/L Potassium (3.6-5.0) mmol/L Chloride (98-107) mmol/L Carbon Dioxide (22-30) mmol/L Anion Gap mmol/L BUN (7-17) mg/dL Creatinine (0.7-1.2) mg/dL Estimated GFR ml/min BUN/Creatinine Ratio % Glucose (65-100) mg/dL Lactic Acid 1.50 (0.7-2.0) mmol/L Calcium (8.4-10.2) mg/dL Magnesium 2.30 (1.7-2.3) mg/dL Total Creatine Kinase 97 (30-135) units/L - EKG Data -: EKG Interpreted by Me Rate: tachycardia - EKG Data 03/30/18 18:57 Sinus tachycardia, 104 bpm, QTC prolonged, atrial enlargement, left ventricular hypertrophy, motion artifact, normal axis, not consistent with ST elevation myocardial infarction. - Radiology Data Radiology results: report reviewed, image reviewed Ordering Physician: JIMMIE MROAN MD Date of Service: 03/30/18 Procedure(s): XR chest 1V ap Accession Number(s): [id number] cc: JIMMIE MORAN MD Fluoro Time In Minutes: FINAL REPORT EXAM: XR CHEST 1V AP HISTORY: SOB TECHNIQUE: AP portable view of the chest. PRIORS: None. FINDINGS: There is atherosclerotic calcification in the thoracic aorta. Otherwise the cardiomediastinal silhouette appears normal. There is mild diffuse prominence of the interstitial markings bilaterally. The bones and soft tissues are unremarkable. IMPRESSION: Interstitial prominence may be due to chronic interstitial lung disease, pu lmonary edema or pneumonia. Recommend comparison with previous chest radiographs if there are any available Transcribed By: MLG Dictated By: ROSY ROMO MD Electronically Authenticated By: ROSY ROMO MD Signed Date/Time: 03/30/18 8330 - Medical Decision Making Differential diagnosis, including but not limited to: Bronchitis, COPD exacerbation, pneumonia, pneumonitis, influenza Assessment Critical care attestation.: If time is entered above; I have spent that time in minutes in the direct care of this critically ill patient, excluding procedure time. ED Disposition Clinical Impression: COPD with exacerbation Disposition: -09 OP ADMIT IP TO THIS HOSP Is pt being admited?: Yes Condition: Good
[2018-03-30 17:33] LABS: Basophils % (Auto) 0.3 % (0.0-1.8); Eosinophils % (Auto) 0.1 % (0.0-4.3); Hematocrit 34.5 % (30.3-42.9); Hemoglobin 11.4 gm/dl (10.1-14.3); Lymphocytes # (Auto) 0.5 K/mm3 (1.2-5.4); Lymphocytes % (Auto) 7.1 % (13.4-35.0); Mean Corpuscular HGB Conc 33 % (30-34); Mean Corpuscular Volume 91 fl (79-97); Monocytes # (Auto) 0.2 K/mm3 (0.0-0.8); Monocytes % (Auto) 2.7 % (0.0-7.3); Platelet Count 335 K/mm3 (140-440); Red Blood Count 3.79 M/mm3 (3.65-5.03); Red Cell Distribution Width 16.2 % (13.2-15.2)
[2018-03-30 18:06] LABS: BUN/Creatinine Ratio 24; Blood Urea Nitrogen 17 mg/dL (7-17); Hemolysis Index 5
--- NOTE | 2018-03-30 18:26 | XRay Report ---
FINAL REPORT EXAM: XR CHEST 1V AP HISTORY: SOB TECHNIQUE: AP portable view of the chest. PRIORS: None. FINDINGS: There is atherosclerotic calcification in the thoracic aorta. Otherwise the cardiomediastinal silhoue tte appears normal. There is mild diffuse prominence of the interstitial markings bilaterally. The shaniqua hina and soft tissues are unremarkable. IMPRESSION: Interstitial prominence may be due to chronic interstitial lung disease, pulmonary edema or pneumonia . Recommend comparison with previous chest radiographs if there are any available
[2018-03-30 18:39] LABS: INR 0.98 (0.87-1.13)
[2018-03-30] MEDS ORDERED: ZITHROMAX PO ONE (18:53)
[2018-03-30] MEDS ORDERED: ROCEPHIN/NS 1 GM/50 ML 1 GM/50 ML BAG IV ONE (18:53)
[2018-03-30 19:40] LABS: Bilirubin,Urine NEG (Negative); Blood,Urine NEG (Negative); Color,Urine Yellow (Yellow); Urobilinogen,Urine < 2.0 mg/dL (<2.0)
[2018-03-30] MEDS ORDERED: D50W (25GM) Syringe IV PRN (23:03)
[2018-03-30] MEDS ORDERED: TYLENOL PO PRN (23:04)
[2018-03-30] MEDS ORDERED: ZOFRAN IV PRN (23:05)
[2018-03-30] MEDS ORDERED: FLEXERIL PO PRN (23:05)
[2018-03-30] MEDS ORDERED: TYLENOL #3 PO PRN (23:05)
--- NOTE | 2018-03-31 05:04 | History and Physical Report ---
CHIEF COMPLAINT: Shortness of breath. HISTORY OF PRESENT ILLNESS: The patient is a 77-year-old female with past medical history of COPD, presenting with shortness of breath, cough, wheezing and malaise as well as fatigue going on for about 1 to 2 weeks. There was no history of chest pain. The patient called EMS and was picked up and given some breathing treatment en route to the hospital and still continued to have shortness of breath with wheezing. There was no history of fever or chills and the patient presented for evaluation at the Emergency Room. PAST MEDICAL HISTORY: Pertinent for hypertension, diabetes mellitus, arthritis, asthma, history of tuberculosis, chronic obstructive pulmonary disease. PAST SURGICAL HISTORY: Pertinent for appendectomy, cholecystectomy, hernia repair, hemorrhoid and rectal surgery. FAMILY HISTORY: Noncontributory. SOCIAL HISTORY: The patient still smokes cigarettes, does not drink alcohol and does not use illicit drugs. MEDICATIONS: The patient is on colesevelam 1 by mouth twice daily, aspirin 81 mg by mouth daily, Lipitor 40 mg by mouth at bedtime, Flexeril 10 mg by mouth as needed, albuterol 2 puffs inhalation q.i.d., Tylenol 650 mg by mouth q.i.d., insulin Lispro 18 units subcutaneous before meals and at bedtime, Cozaar 100 mg by mouth daily, Nitro-Dur 0.4 mg ____ daily, Nitrostat 0.4 mg sublingual every 5 minutes, umeclidinium bromide/vilanterol or Anoro Ellipta 62.5-25 mcg inhalation 1 inhalation daily, pantoprazole 40 mg by mouth daily, Tylenol No. 3 one by mouth every 6 hours as needed for pain. ALLERGIES: There are no known drug allergies. REVIEW OF SYSTEMS: CONSTITUTIONAL: There is no fever, no chills, no diaphoresis. HEENT: There is no headache or sore throat. CARDIOVASCULAR: There is no chest pain or orthopnea. RESPIRATORY SYSTEM: There is reduced air entry on both sides of the lung with respiratory wheezing. GASTROINTESTINAL SYSTEM: There is no nausea, no vomiting, no abdominal pain, diarrhea or constipation. NEUROLOGICAL: There is no numbness, no dizziness, no altered mental status. MUSCULOSKELETAL SYSTEM: There is no joint pain or swelling. DERMATOLOGICAL SYSTEM: There is no skin rash or itching. GENITOURINARY: There is no costovertebral angle tenderness. PHYSICAL EXAMINATION: GENERAL: The patient to be alert, oriented x 3 and in mild distress due to shortness of breath. VITAL SIGNS: Initially at the time of presentation show temperature of 98.1 degrees Fahrenheit, pulse of 110, respirations 26, blood pressure initially 162/134 with blood pressure eventually coming down to 112/52. HEENT: Showed pupils to be equal, round, reactive to light and accommodating. Extraocular muscles are intact. NECK: Supple with no JVD or carotid bruit. CARDIOVASCULAR: Showed normal first and second heart sounds with no gallops or murmurs. RESPIRATORY: Show reduced air entry on both sides of the lungs with respiratory wheezing. GASTROINTESTINAL SYSTEM: Show abdomen to be full, soft, nontender with no organomegaly or rigidity. NEUROLOGIC: Shows no focal deficit. MUSCULOSKELETAL SYSTEM: Show no joint swelling or tenderness. DERMATOLOGICAL SYSTEM: Showing no skin rash. GENITOURINARY SYSTEM: Showing no costovertebral angle tenderness. PERTINENT LABORATORY AND IMAGING STUDIES: The patient had chest x-ray done that shows interstiitial prominence due to chronic interstitial lung disease, pulmonary edema or pneumonia and the radiologist recommended comparing this radiograph with previous radiographs if available. Lab results: The patient has CBC done with normal white count, normal hemoglobin and normal hematocrit with CBC differential showing elevated segmented neutrophil of 89.8%. The patient's chemistry showed low sodium of 136, low chloride of 93.8 and rest of chemistry was unremarkable. The patient's urinalysis was unremarkable. Serology shows a negative influenza A and B. DIAGNOSES: 1. Chronic obstructive pulmonary disease exacerbation. 2. Community acquired pneumonia of the right lung field. PLAN OF ACTION: 1. The patient will be admitted to the medical floor. The patient will be on IV ceftriaxone 1 gram daily. 2. The patient will be on IV Zithromax 500 mg daily. 3. The patient will be on p.r.n. medications like Tylenol 650 mg by mouth every 6 hours for fever and headache and will also be on IV Zofran 4 mg every 8 hours as needed for nausea and vomiting. 4. The patient will be on DuoNeb q.i.d. and will be on Solu-Medrol 60 mg q. 8 hours. 5. The patient's home medications will be started as shown in the medication reconciliation section. 6. The patient's diet will be consistent carbohydrate, low sodium diet. 7. The patient will be on Accu-Chek before meals and at bedtime, followed by low-dose sliding scale using regular insulin coverage. JOB# [id number] OCN/NTS
[2018-03-31] MEDS: SOLU-Medrol IV SCH ×2 (06:08→14:37)
[2018-03-31] MEDS: HumuLIN R SUB-Q SCH ×3 (08:47→17:59)
[2018-03-31] MEDS: DUONEB *Not for PRN Use IH SCH ×4 (09:16→17:59)
--- NOTE | 2018-03-31 09:47 | Progress Note ---
Hospitalist Physical - Constitutional Vitals: Temp Pulse Resp BP Pulse Ox 98.5 F 106 H 22 168/90 97 03/31/18 07:47 03/31/18 09:05 03/31/18 09:06 03/31/18 09:05 03/31/18 07:47 Results - Labs CBC & Chem 7: 03/30/18 17:24 03/30/18 17:24 Labs: Laboratory Last Values WBC 6.8 K/mm3 (4.5-11.0) 03/30/18 17:24 RBC 3.79 M/mm3 (3.65-5.03) 03/30/18 17:24 Hgb 11.4 gm/dl (10.1-14.3) 03/30/18 17:24 Hct 34.5 % (30.3-42.9) 03/30/18 17:24 MCV 91 fl (79-97) 03/30/18 17:24 MCH 30 pg (28-32) 03/30/18 17:24 MCHC 33 % (30-34) 03/30/18 17:24 RDW 16.2 % (13.2-15.2) H 03/30/18 17:24 Plt Count 335 K/mm3 (140-440) 03/30/18 17:24 Lymph % (Auto) 7.1 % (13.4-35.0) L 03/30/18 17:24 [place] % (Auto) 2.7 % (0.0-7.3) 03/30/18 17:24 Eos % (Auto) 0.1 % (0.0-4.3) 03/30/18 17:24 Baso % (Auto) 0.3 % (0.0-1.8) 03/30/18 17:24 Lymph # 0.5 K/mm3 (1.2-5.4) L 03/30/18 17:24 [place] # 0.2 K/mm3 (0.0-0.8) 03/30/18 17:24 Eos # 0.0 K/mm3 (0.0-0.4) 03/30/18 17:24 Baso # 0.0 K/mm3 (0.0-0.1) 03/30/18 17:24 Seg Neutrophils % 89.8 % (40.0-70.0) H 03/30/18 17:24 Seg Neutrophils # 6.1 K/mm3 (1.8-7.7) 03/30/18 17:24 PT 13.4 Sec. (12.2-14.9) 03/30/18 17:46 INR 0.98 (0.87-1.13) 03/30/18 17:46 Sodium 136 mmol/L (137-145) L 03/30/18 17:24 Potassium 3.9 mmol/L (3.6-5.0) 03/30/18 17:24 Chloride 96.8 mmol/L (98-107) L 03/30/18 17:24 Carbon Dioxide 29 mmol/L (22-30) 03/30/18 17:24 Anion Gap 14 mmol/L 03/30/18 17:24 BUN 17 mg/dL (7-17) 03/30/18 17:24 Creatinine 0.7 mg/dL (0.7-1.2) 03/30/18 17:24 Estimated GFR > 60 ml/min 03/30/18 17:24 BUN/Creatinine Ratio 24 % 03/30/18 17:24 Glucose 110 mg/dL (65-100) H 03/30/18 17:24 POC Glucose 229 (70-105) H 03/31/18 07:47 Lactic Acid 1.50 mmol/L (0.7-2.0) 03/30/18 17:55 Calcium 9.0 mg/dL (8.4-10.2) 03/30/18 17:24 Magnesium 2.30 mg/dL (1.7-2.3) 03/30/18 17:46 Total Creatine Kinase 97 units/L (30-135) 03/30/18 17:46 Urine Color Yellow (Yellow) 03/30/18 19:13 Urine Turbidity Clear (Clear) 03/30/18 19:13 Urine pH 5.0 (5.0-7.0) 03/30/18 19:13 Ur Specific [place] 1.012 (1.003-1.030) 03/30/18 19:13 Urine Protein 100 mg/dl mg/dL (Negative) 03/30/18 19:13 Urine Glucose (UA) Neg mg/dL (Negative) 03/30/18 19:13 Urine Ketones Neg mg/dL (Negative) 03/30/18 19:13 Urine Blood Neg (Negative) 03/30/18 19:13 Urine Nitrite Neg (Negative) 03/30/18 19:13 Urine Bilirubin Neg (Negative) 03/30/18 19:13 Urine Urobilinogen < 2.0 mg/dL (<2.0) 03/30/18 19:13 Ur Leukocyte Esterase Neg (Negative) 03/30/18 19:13 Urine WBC (Auto) 3.0 /HPF (0.0-6.0) 03/30/18 19:13 Urine RBC (Auto) 5.0 /HPF (0.0-6.0) 03/30/18 19:13 U Epithel Cells (Auto) 1.0 /HPF (0-13.0) 03/30/18 19:13 Influenza A (Rapid) Negative (Negative) 03/30/18 19:13 Influenza B (Rapid) Negative (Negative) 03/30/18 19:13
[2018-03-31] MEDS ORDERED: COZAAR PO SCH (10:00)
[2018-03-31] MEDS ORDERED: HALFPRIN EC PO SCH (10:00)
[2018-03-31] MEDS ORDERED: ROCEPHIN/NS 1 GM/50 ML 1 GM/50 ML BAG IV SCH (10:00)
[2018-03-31] MEDS ORDERED: HEPARIN SUB-Q SCH (10:00)
[2018-03-31] MEDS ORDERED: NON-FORMULARY (Umeclidinium Brm/Vilanterol Tr [Anoro Ellipta 62.5-25 Mcg Inh] 1 EACH) IH SCH (10:00)
[2018-03-31] MEDS ORDERED: ZITHROMAX 500 MG in NACL 0.9% 250ML 250 ML IV SCH (10:00)
[2018-03-31] MEDS ORDERED: PROTONIX PO SCH (10:00)
[2018-03-31] MEDS ORDERED: WELCHOL PO SCH (10:00)
[2018-03-31] MEDS ORDERED: NITRO DUR TD SCH (10:00)
[2018-03-31 15:31] VITALS: BP 128/75
--- NOTE | 2018-03-31 16:53 | Discharge Summary ---
Providers - Providers Date of Admission: 03/31/18 09:36 Date of discharge: 03/31/18 Attending physician: RESHMA FERGUSON Primary care physician: FAMILY [facility] COUNSELLOR Hospitalization Reason for admission: worsening shortness of breath. Condition: Good Pertinent studies: Chest x-ray; interstitial prominence. The due to chronic interstitial lung disease pulmonary edema or pneumonia recommend comparison to previous chest x-ray Hospital course: 77-year-old female patient was admitted to emergency room with worsening [place] rtness of breath Initial evaluation was consistent with acute COPD exacerbation and pneumonia Patient was admitted symptomatically managed with oxygen nebulizers and IV steroids IV antibiotics And supportive care, Patient's symptoms significantly improved, today she is comfortable in bed no new complaints Vital signs reviewed, stable Physical examination prior to discharge is unremarkable Patient is hemodynamically and clinically stable at discharge Discharge diagnosis; --Acute exacerbation of COPD --Acute on chronic respiratory failure --Pneumonia community-acquired --Malnutrition --History of heart failure Disposition: TO HOME OR SELFCARE Time spent for discharge: 32 min Core Measure Documentation - Palliative Care Palliative Care/ Comfort Measures: Not Applicable - Core Measures Any of the following diagnoses?: none Exam - Constitutional Vitals: Temp Pulse Resp BP Pulse Ox 98.6 F 109 H 20 128/75 99 03/31/18 14:22 03/31/18 15:02 03/31/18 15:02 03/31/18 14:22 03/31/18 15:00 General appearance: Present: no acute distress, well-nourished - EENT Eyes: Present: PERRL, EOM intact - Neck Neck: Present: supple, normal ROM - Respiratory Respiratory effort: normal Respiratory: bilateral: diminished, wheezing, negative: rales, rhonchi - Cardiovascular Rhythm: regular Heart Sounds: Present: S1 & S2 - Extremities Extremities: no ischemia, No edema - Abdominal General gastrointestinal: Present: soft, non-tender, non-distended, normal bowel sounds - Integumentary Integumentary: Present: clear, warm - Musculoskeletal Musculoskeletal: strength equal bilaterally, generalized weakness - Psychiatric Psychiatric: appropriate mood/affect, cooperative - Neurologic Neurologic: CNII-XII intact, moves all extremities Plan Activity: advance as tolerated, fall precautions Diet: diabetic Additional Instructions: If you have chest pain or shortness of breath,contact M.D. or go to emergency room. Smoking cessation advised Follow up with: PRIMARY CARE, [Primary Care Provider] - 3-5 Days
[2018-03-31] MEDS ORDERED: HumuLIN R SUB-Q SCH (22:00)
== END 2018-03-31 18:30 | disposition home or self-care (01) | DRG 190 ==
LOC: ED 16:00 → 2B-ACE 21:20 → OBSVTOIN 03-31 09:36
PROVIDERS: ADMIT Internal Medicine; ATTEND Internal Medicine
DX: J44.0 Chronic obstructive pulmonary disease with (acute) lower respiratory infection (principal); J18.9 Pneumonia, unspecified organism; J44.1 Chronic obstructive pulmonary disease with (acute) exacerbation; F41.9 Anxiety disorder, unspecified; I12.9 Hypertensive chronic kidney disease with stage 1 through stage 4 chronic kidney disease, or unspecified chronic kidney disease; E11.22 Type 2 diabetes mellitus with diabetic chronic kidney disease; N18.9 Chronic kidney disease, unspecified; F17.210 Nicotine dependence, cigarettes, uncomplicated; Z86.11 Personal history of tuberculosis; Z79.899 Other long term (current) drug therapy; Z90.49 Acquired absence of other specified parts of digestive tract; Z90.710 Acquired absence of both cervix and uterus; Z83.3 Family history of diabetes mellitus; Z80.9 Family history of malignant neoplasm, unspecified; Z79.4 Long term (current) use of insulin; Z79.51 Long term (current) use of inhaled steroids; Z71.6 Tobacco abuse counseling
CPT/HCPCS: 36415; 71045; 80048; 81001; 82140; 82550; 82962; 83735; 85025; 85610; 87040; 87400; 93005; 93010; 94640; 94760; 96374; 99406; G0378; J0456; J0696; J1644; J1815; J2405; J2920; J7050

== ENCOUNTER 2018-04-03 15:45 | Inpatient (IN) | payer MEDICARE ==
[2018-04-03] MEDS ORDERED: MAXIPIME/NS 1 GM/100 ML 1 GM/100 ML BAG IV ONE (16:11)
[2018-04-03] MEDS ORDERED: MAGNESIUM SULFATE 2GM/50ML 2 GM/50 ML BAG IV ONE (16:13)
[2018-04-03] MEDS ORDERED: DUONEB *Not for PRN Use IH ONE (16:13)
[2018-04-03] MEDS ORDERED: SOLU-Medrol IV ONE (16:13)
--- NOTE | 2018-04-03 16:15 | Emergency Department Report ---
ED Shortness of Breath HPI - General Chief Complaint: Dyspnea/Respdistress Stated Complaint: DIFFICULTY BREATHING/LEG SWELLING Time Seen by Provider: 04/03/18 16:02 Source: patient Mode of arrival: Ambulatory Limitations: No Limitations - History of Present Illness Initial Comments: This 77-year-old female that presents to [facility] with complaints of shortness of breath and cough and lower extremity pain and swelling. Patient states that she was discharged from the hospital 3 days ago with a Z-Terrance and prednisone. Patient states she was in the hospital for a few days for a COPD exacerbation and pneumonia. Patient states that she left the hospital her symptoms were improving however over the last 2 days her symptoms have worsened. Patient denies fever and chills. Patient denies chest pain. Patient states her shortness of breath and dyspnea on exertion or worsening. Patient states that this morning both of her legs began to swell and hurting. Patient states the pain in her legs is a 2 out of 10. Patient states her pain is better with rest and worse with movement. Patient states originally her symptoms started about a week and a half to 2 weeks prior to previous ER visit . Reports that she got her influenza vaccination. Past medical history: Anxiety, arthritis, diabetes, hypertension, appendectomy, cholecystectomy, hysterectomy, bladder surgery, COPD MD Complaint: shortness of breath, cough -: Sudden Severity: severe Consistency: constant Improves With: rest, bronchodilators, upright position, medication Worsens With: lying flat, exertion Known History Of: COPD Context: recent URI Associated Symptoms: cough, sputum production, orhopnia, lower extremity pain, lower abdominal swelling Treatments Prior to Arrival: oxygen, bronchodilator - Related Data Home Medications Medication Instructions Recorded Confirmed Last Taken Cyclobenzaprine [Flexeril 10 MG 10 mg PO PRN PRN 07/22/14 04/03/18 1 Day Ago TAB] ~02/09/16 ALBUTEROL Inhaler (OR & NICU) 2 puff IH QID PRN 02/10/16 04/03/18 1 Day Ago [ProAir HFA Inhaler] ~02/09/16 Insulin Lispro Prot/Lispro 18 unit SQ ACHS 02/10/16 04/03/18 1 Day Ago [HumaLOG Mix 75/25 Vial] ~02/09/16 Nitroglycerin [Nitrostat] 0.4 mg SL Q5M PRN 02/10/16 04/03/18 1 Week Ago ~02/03/16 Umeclidinium Brm/Vilanterol Tr 1 each IH QDAY 02/10/16 04/03/18 1 Day Ago [Anoro Ellipta 62.5-25 Mcg INH] ~02/09/16 Acetaminophen 650 mg PO QID 04/03/18 04/03/18 Unknown Acetaminophen/Codeine [Tylenol 1 tab PO Q6H PRN 04/03/18 04/03/18 Unknown /Codeine # 3 tab] Ondansetron [Zofran Odt] 4 mg PO TID PRN 04/03/18 04/03/18 Unknown Previous Rx's Medication Instructions Recorded Last Taken Type Aspirin [Aspirin TAB] 81 mg PO QDAY #30 tablet 07/22/14 1 Day Ago Rx ~02/09/16 Atorvastatin [Lipitor] 40 mg PO QHS #30 tab 07/22/14 1 Day Ago Rx ~02/09/16 Pantoprazole [Protonix TAB] 40 mg PO QDAY #30 tab 03/27/16 1 Day Ago Rx ~02/09/16 Allergies Allergy/AdvReac Type Severity Reaction Status Date / Time No Known Allergies Allergy Verified 03/26/16 12:41 ED Review of Systems ROS: Stated complaint: DIFFICULTY BREATHING/LEG SWELLING Other details as noted in HPI Constitutional: denies: chills, fever Eyes: denies: eye pain, eye discharge, vision change ENT: denies: ear pain, throat pain Respiratory: cough, orthopnea, shortness of breath, SOB with exertion, SOB at rest, wheezing Cardiovascular: chest pain, edema. denies: palpitations Endocrine: no symptoms reported Gastrointestinal: denies: abdominal pain, nausea, diarrhea Genitourinary: denies: urgency, dysuria, discharge Musculoskeletal: denies: back pain, joint swelling, arthralgia Skin: denies: rash, lesions Neurological: denies: headache, weakness, paresthesias Psychiatric: denies: anxiety, depression Hematological/Lymphatic: denies: easy bleeding, easy bruising ED Past Medical Hx - Past Medical History Previous Medical History?: Yes Hx Hypertension: Yes (Losartan) Hx Heart Attack/AMI: No Hx Diabetes: Yes Hx Arthritis: Yes Hx Seizures: No Hx Asthma: Yes (Inhaler this AM) Hx COPD: Yes Hx Tuberculosis: Yes Hx HIV: No - Surgical History Hx Coronary Stent: No Hx Cholecystectomy: Yes Hx Appendectomy: Yes Additional Surgical History: hernia repair x2 hemmoriod and rectal surgery. - Family History Family history: no significant - Social History Smoking Status: Current Every Day Smoker Substance Use Type: None - Medications Home Medications: Home Medications Medication Instructions Recorded Confirmed Last Taken Type Aspirin [Aspirin TAB] 81 mg PO QDAY #30 tablet 07/22/14 04/03/18 1 Day Ago Rx ~02/09/16 Atorvastatin [Lipitor] 40 mg PO QHS #30 tab 07/22/14 04/03/18 1 Day Ago Rx ~02/09/16 Cyclobenzaprine [Flexeril 10 MG 10 mg PO PRN PRN 07/22/14 04/03/18 1 Day Ago History TAB] ~02/09/16 ALBUTEROL Inhaler (OR & NICU) 2 puff IH QID PRN 02/10/16 04/03/18 1 Day Ago His tory [ProAir HFA Inhaler] ~02/09/16 Insulin Lispro Prot/Lispro 18 unit SQ ACHS 02/10/16 04/03/18 1 Day Ago History [HumaLOG Mix 75/25 Vial] ~02/09/16 Nitroglycerin [Nitrostat] 0.4 mg SL Q5M PRN 02/10/16 04/03/18 1 Week Ago History ~02/03/16 Umeclidinium Brm/Vilanterol Tr 1 each IH QDAY 02/10/16 04/03/18 1 Day Ago History [Anoro Ellipta 62.5-25 Mcg INH] ~02/09/16 Pantoprazole [Protonix TAB] 40 mg PO QDAY #30 tab 03/27/16 04/03/18 1 Day Ago Rx ~02/09/16 Acetaminophen 650 mg PO QID 04/03/18 04/03/18 Unknown History Acetaminophen/Codeine [Tylenol 1 tab PO Q6H PRN 04/03/18 04/03/18 Unknown History /Codeine # 3 tab] Ondansetron [Zofran Odt] 4 mg PO TID PRN 04/03/18 04/03/18 Unknown History ED Physical Exam - General Limitations: No Limitations General appearance: alert, in no apparent distress - Head Head exam: Present: atraumatic, normocephalic - Eye Eye exam: Present: normal appearance - ENT ENT exam: Present: mucous membranes dry - Neck Neck exam: Present: normal inspection - Respiratory Respiratory exam: Present: respiratory distress, wheezes, rhonchi, accessory muscle use - Cardiovascular Cardiovascular Exam: Present: regular rate, normal rhythm, tachycardia. Absent: systolic murmur, diastolic murmur, rubs, gallop - GI/Abdominal GI/Abdominal exam: Present: soft, normal bowel sounds. Absent: distended, tenderness, guarding, rebound - Extremities Exam Extremities exam: Present: pedal edema, calf tenderness - Back Exam Back exam: Present: normal inspection - Neurological Exam Neurological exam: Present: alert, oriented X3 - Psychiatric Psychiatric exam: Present: normal affect, normal mood - Skin Skin exam: Present: warm, dry, intact, normal color. Absent: rash ED Course Vital Signs 04/03/18 04/03/18 04/03/18 15:49 16:11 16:23 Temperature 98.9 F 98.3 F Pulse Rate 120 H 117 H Respiratory 18 18 18 Rate Blood Pressure 220/102 Blood Pressure 134/64 [Right] O2 Sat by Pulse 96 100 100 Oximetry 04/03/18 04/03/18 04/03/18 19:15 19:31 20:00 Temperature Pulse Rate 103 H 102 H 94 H Respiratory 26 H 18 27 H Rate Blood Pressure 133/67 139/70 132/77 Blood Pressure [Right] O2 Sat by Pulse 98 98 98 Oximetry 04/03/18 04/03/18 04/03/18 21:00 22:00 23:00 Temperature Pulse Rate 101 H Respiratory 34 H Rate Blood Pressure 141/86 146/95 130/76 Blood Pressure [Right] O2 Sat by Pulse 96 96 97 Oximetry 04/03/18 04/03/18 04/03/18 23:08 23:11 23:21 Temperature 97.5 F L Pulse Rate 54 L 106 H 108 H Respiratory 16 26 H 14 Rate Blood Pressure 130/76 130/76 Blood Pressure 146/52 [Right] O2 Sat by Pulse 94 97 98 Oximetry 04/03/18 04/03/18 23:31 23:40 Temperature Pulse Rate 101 H 102 H Respiratory 22 30 H Rate Blood Pressure 130/76 130/76 Blood Pressure [Right] O2 Sat by Pulse 97 Oximetry - Reevaluation(s) Reevaluation #1: Discussed labs with patient. Patient found to have hyperkalemia and hyponatre popeye. Patient will be given insulin, D50, and calcium. 04/03/18 17:17 Stressed all results with patient. Patient agrees to plan of care and admission. Patient admitted to the hospitalist service. 04/03/18 20:10 - Consultations Consultation #1: Hospital was consulted for admission. Hospitalist to admit patient. 04/03/18 20:10 ED Medical Decision Making - Lab Data Result diagrams: 04/03/18 16:19 04/03/18 16:19 - EKG Data -: EKG Interpreted by Oh EKG shows normal: sinus rhythm, axis, intervals, QRS complexes, ST-T waves Rate: normal, tachycardia - EKG Data Interpretation: LVH - Radiology Data Radiology results: report reviewed FINAL REPORT EXAM: XR CHEST 1V AP HISTORY: Dyspnea TECHNIQUE: Frontal portable view of the chest Comparison: Chest x-ray dated March 30, 2018 FINDINGS: There has been interval improvement in aeration of both lungs. There is prominence of the interstitial markings in both lungs similar in appearance to the previous study. There is evidence of a small left pleural fluid collection also similar in appearance to the previous study. There is no evidence of pneumothorax. The cardiac silhouette is enlarged. There is atherosclerotic vascular calcification of the thoracic aorta. The bony structures are not significantly changed in the interval. IMPRESSION: 1. Interval improvement in aeration of both lungs. 2. Persistent bilateral interstitial process, acute versus chronic 3. Persistent left pleural fluid collection. 4. Enlarged cardiac silhouette. FINAL REPORT EXAM: CT ANGIO CHEST HISTORY: sob. hypoxia TECHNIQUE: Following IV administration of 100 cc of Omnipaque 350 axial helical imaging was performed through the chest with sagittal and coronal reformatted images obtained. Comparison: Chest x-ray also performed today FINDINGS: There is prominence of the interstitial markings in both lungs with peribronchial thickening. There are small to moderate-sized bilateral pleural fluid collections. There is pulmonary consolidation in the dependent portions of both lungs. Atelectasis versus infiltrates. There is an approximately 12 millimeter nodular density in the superior aspect of the right lower lobe with stellate margins. This is concerning for malignancy. There are 2 smaller nodular densities in the inferior lateral aspect of the lower lobes bilaterally. There is no evidence of pneumothorax. The heart appears to be enlarged. There is atherosclerotic vascular calcification of the coronary arteries. The thoracic aorta is normal caliber. There is no evidence of intrathoracic adenopathy. No filling defects are demonstrated within the pulmonary arteries to suggest the presence of pulmonary artery emboli. The visualized portion the upper abdomen is notable for the appearance of edema in the fat of the upper abdomen with free fluid in the upper abdomen. There is evidence of previous cholecystectomy and anterior abdominal wall hernia repair. There is an approximately 5 centimeter left renal cyst. The bony structures are notable for spondylitic change in the upper lumbar spine with the appearance of marked canal stenosis. This is not well investigated with this study. There is diffuse anasarca. IMPRESSION: 1. Approximately 12 millimeter nodular density with stellate margins in the right lower lobe concerning for malignancy. Comparison with previous CT imaging studies is recommended. 2. Two additional smaller nodular densities in the lower lobes bilaterally. 3. Appearance of interstitial edema with small to moderate-sized bilateral pleural fluid collections. 4. Cardiomegaly. 5. No evidence of pulmonary artery emboli. 6. Evidence of edema in the upper abdominal fat and free fluid in the upper abdomen. 7. Diffuse anasarca. 8. Previous cholecystectomy and anterior abdominal wall hernia repair. 9. Spondylitic change lumbar spine with marked canal stenosis - Medical Decision Making 77-year-old female presents to emergency room with complaints of shortness of breath. Patient's symptoms are worsening. Patient found have a CHF exacerbation. Patient's labs significant for elevated BNP/trop, hyponatremia, hyperkalemia. Patient had an x-ray done which is negative for pneumonia and shows interstitial edema. Patient has CTA of the chest done, which showed anasarca, pulmonary edema, lung nodule and was negative for PE. Patient admitted to the hospitalist service. She was given hyperkalemia cocktail of insulin, D50 and calcium. Patient also given Lasix for CHF exacerbation. - Differential Diagnosis chf. copd. sob. hypoxia Critical Care Time: Yes Critical care attestation.: If time is entered above; I have spent that time in minutes in the direct care of this critically ill patient, excluding procedure time. Critical Care Time: 55 minutes ED Disposition Clinical Impression: Hyponatremia, Hyperkalemia, Elevated brain natriuretic peptide (BNP) level, Lung nodule, Anasarca, SOB (shortness of breath), COPD with exacerbation, Hypoxia, COPD exacerbation CHF (congestive heart failure) Qualifiers: Heart failure type: unspecified Heart failure chronicity: acute Qualified Code(s): I50.9 - Heart failure, unspecified Pulmonary edema Qualifiers: Chronicity: acute Qualified Code(s): J81.0 - Acute pulmonary edema Disposition: OP ADMIT IP TO THIS HOSP Is pt being admited?: Yes Does the pt Need Aspirin: No Condition: Critical Time of Disposition: 19:55
[2018-04-03 16:43] LABS: Basophils % (Auto) 0.2 % (0.0-1.8); Eosinophils % (Auto) 0.2 % (0.0-4.3); Hematocrit 40.5 % (30.3-42.9); Hemoglobin 13.3 gm/dl (10.1-14.3); Lymphocytes # (Auto) 0.6 K/mm3 (1.2-5.4); Lymphocytes % (Auto) 7.5 % (13.4-35.0); Mean Corpuscular HGB Conc 33 % (30-34); Mean Corpuscular Volume 91 fl (79-97); Monocytes # (Auto) 0.3 K/mm3 (0.0-0.8); Monocytes % (Auto) 3.8 % (0.0-7.3); Platelet Count 374 K/mm3 (140-440); Red Blood Count 4.44 M/mm3 (3.65-5.03); Red Cell Distribution Width 16.6 % (13.2-15.2)
[2018-04-03 16:53] LABS: Albumin 3.4 g/dL (3.9-5); Calcium 8.4 mg/dL (8.4-10.2)
[2018-04-03] MEDS ORDERED: MAGNESIUM SULFATE 2GM/50ML 2 GM/50 ML BAG IV SCH (17:00)
[2018-04-03 17:15] LABS: Creatine Kinase MB 8.6 ng/mL (0.0-4.0)
[2018-04-03] MEDS ORDERED: HumuLIN R IV ONE (17:15)
[2018-04-03] MEDS ORDERED: D50W (25GM) Vial IV ONE (17:15)
[2018-04-03] MEDS ORDERED: CALCIUM CHLORIDE IVP ONE (17:15)
[2018-04-03] MEDS ORDERED: NACL 0.9% 1000 ML 1,000 ML IV ONE (17:16)
--- NOTE | 2018-04-03 17:21 | XRay Report ---
FINAL REPORT EXAM: XR CHEST 1V AP HISTORY: Dyspnea TECHNIQUE: Frontal portable view of the chest Comparison: Chest x-ray dated March 30, 2018 FINDINGS: There has been interval improvement in aeration of both lungs. There is prominence of the interstitial markings in both lungs similar in appearance to the previous study. There is evidence of a small left pleural fluid collection also similar in appearance to the previous study. There is no evidence of pneumothorax. The cardiac silhouette is enlarged. There is atherosclerotic vascular calcification of the thoracic aorta. The bony structures are not significantly changed in the interval. IMPRESSION: 1. Interval improvement in aeration of both lungs. 2. Persistent bilateral interstitial process, acute versus chronic 3. Persistent left pleural fluid collection. 4. Enlarged cardiac silhouette.
[2018-04-03 17:26] LABS: Chol/HDL Ratio 3.23 %
[2018-04-03] MEDS ORDERED: CALCIUM CHLORIDE 1,000 MG in NACL 0.9% 100 ML IV ONE (18:00)
[2018-04-03] MEDS ORDERED: D50W (25GM) Syringe IV ONE (18:00)
--- NOTE | 2018-04-03 19:37 | Cat Scan Report ---
FINAL REPORT EXAM: CT ANGIO CHEST HISTORY: sob. hypoxia TECHNIQUE: Following IV administration of 100 cc of Omnipaque 350 axial helical imaging was performe d through the chest with sagittal and coronal reformatted images obtained. Comparison: Chest x-ray also performed today FINDINGS: There is prominence of the interstitial markings in both lungs with peribronchial thickening. There are small to moderate-sized bilateral pleural fluid collections. There is pulmonary consolidation in the dependent portions of both lungs. Atelectasis versus infiltra marcin. There is an approximately 12 millimeter nodular density in the superior aspect of the right lower lob e with stellate margins. This is concerning for malignancy. There are 2 smaller nodular densities in the inferior lateral aspect of the lower lobes bilaterally. There is no evidence of pneumothorax. The heart appears to be enlarged. There is atherosclerotic vascular calcification of the coronary art eries. The thoracic aorta is normal caliber. There is no evidence of intrathoracic adenopathy. No filling defects are demonstrated within the pulmonary arteries to suggest the presence of pulmonar y artery emboli. The visualized portion the upper abdomen is notable for the appearance of edema in the fat of the upp er abdomen with free fluid in the upper abdomen. There is evidence of previous cholecystectomy and anterior abdominal wall hernia repair. There is an approximately 5 centimeter left renal cyst. The bony structures are notable for spondylitic change in the upper lumbar spine with the appearance of marked canal stenosis. This is not well investigated with this study. There is diffuse anasarca. IMPRESSION: 1. Approximately 12 millimeter nodular density with stellate margins in the right lower lobe concerni ng for malignancy. Comparison with previous CT imaging studies is recommended. 2. Two additional smaller nodular densities in the lower lobes bilaterally. 3. Appearance of interstitial edema with small to moderate-sized bilateral pleural fluid collections. 4. Cardiomegaly. 5. No evidence of pulmonary artery emboli. 6. Evidence of edema in the upper abdominal fat and free fluid in the upper abdomen. 7. Diffuse anasarca. 8. Previous cholecystectomy and anterior abdominal wall hernia repair. 9. Spondylitic change lumbar spine with marked canal stenosis.
[2018-04-03] MEDS ORDERED: MORPHINE IV ONE (19:53)
[2018-04-03] MEDS ORDERED: LASIX IV ONE (19:54)
[2018-04-03] MEDS ORDERED: MORPHINE ONE (20:04)
--- NOTE | 2018-04-03 21:18 | Vascular Lab Report ---
FINAL REPORT EXAM: VL VENOUS DUPLEX LE BILAT HISTORY: lower ext pain and swelling TECHNIQUE: Grayscale, color flow and Doppler waveform imaging of the deep venous structures of the l ower extremities was performed. Comparison: None FINDINGS: There is demonstration of normal compression and normal phasic flow in the deep venous structures of the lower extremities bilaterally from the common femoral veins to the popliteal veins. Flow is demonstrated in the posterior tibial and peroneal veins bilaterally. There is an irregularly shaped collection in the left popliteal fossa that most likely represents a B shilpa cyst. This measures approximately 5 centimeters in the maximum dimension. IMPRESSION: 1. No ultrasound evidence of deep venous thrombosis in the lower extremities bilaterally. 2. Probable Parsons's cyst left popliteal fossa.
--- NOTE | 2018-04-03 21:56 | History and Physical Report ---
History of Present Illness Date of examination: 04/03/18 History of present illness: 77-year-old woman with a history of hypertension, diabetes, COPD coming emergency room with complaint of shortness of breath, lower extremity edema started today. Patient was just discharged from the hospital for treatment of pneumonia and COPD exacerbation Review of systems Constitutional: no weight loss, chills, fever Ears, eyes, nose, mouth and throat: no nasal congestion, no nasal discharge, no sinus pressure, no vision change, no red eye. Neck: No neck pain or rigidity. Cardiovascular: no palpitations, chest pain Respiratory: no cough, +shortness of breath Gastrointestinal: no hematochezia, abdominal pain Genitourinary : no frequency , no hematuria Musculoskeletal: no joint swelling or muscle ache Integumentary: no rash, no pruritis Neurological: no parathesias, no focal weakness Endocrine: no cold or heat intolerance, no polyuria or polydipsia Hematologic/Lymphatic: no easy bruising, no easy bleeding, no gland swelling Allergic/Immunologic: no urticaria, no angioedema. PAST MEDICAL HISTORY: hypertension, diabetes, COPD PAST SURGICAL HISTORY: Cholecystectomy, appendectomy, hemorrhoidectomy SOCIAL HISTORY: Denies alcohol, drugs,+ tobacco FAMILY HISTORY: Hypertension Medications and Allergies Allergies Allergy/AdvReac Type Severity Reaction Status Date / Time No Known Allergies Allergy Verified 03/26/16 12:41 Home Medications Medication Instructions Recorded Confirmed Last Taken Type Aspirin [Aspirin TAB] 81 mg PO QDAY #30 tablet 07/22/14 04/03/18 1 Day Ago Rx ~02/09/16 Atorvastatin [Lipitor] 40 mg PO QHS #30 tab 07/22/14 04/03/18 1 Day Ago Rx ~02/09/16 Cyclobenzaprine [Flexeril 10 MG 10 mg PO PRN PRN 07/22/14 04/03/18 1 Day Ago History TAB] ~02/09/16 ALBUTEROL Inhaler (OR & NICU) 2 puff IH QID PRN 02/10/16 04/03/18 1 Day Ago History [ProAir HFA Inhaler] ~02/09/16 Insulin Lispro Prot/Lispro 18 unit SQ ACHS 02/10/16 04/03/18 1 Day Ago History [HumaLOG Mix 75/25 Vial] ~02/09/16 Nitroglycerin [Nitrostat] 0.4 mg SL Q5M PRN 02/10/16 04/03/18 1 Week Ago History ~02/03/16 Umeclidinium Brm/Vilanterol Tr 1 each IH QDAY 02/10/16 04/03/18 1 Day Ago History [Anoro Ellipta 62.5-25 Mcg INH] ~02/09/16 Pantoprazole [Protonix TAB] 40 mg PO QDAY #30 tab 03/27/16 04/03/18 1 Day Ago Rx ~02/09/16 Acetaminophen 650 mg PO QID 04/03/18 04/03/18 Unknown History Acetaminophen/Codeine [Tylenol 1 tab PO Q6H PRN 04/03/18 04/03/18 Unknown History /Codeine # 3 tab] Ondansetron [Zofran Odt] 4 mg PO TID PRN 04/03/18 04/03/18 Unknown History Active Meds: Active Medications Magnesium Sulfate (Magnesium Sulfate 2gm/50ml) 2 gm in 50 mls @ 200 mls/hr IV ONCE JACKIE Last Admin: 04/03/18 17:10 Dose: 200 mls/hr Documented by: Exam - Physical Exam Narrative exam: General Apperance: The patient lying in bed, breathing comfortable HEENT: Normocephalic, atraumatic. Pupils equally round and reactive to light, EOMI, no sclericterus or JVD or thyromegaly or nodule. , no carotid bruit, mucous membranes moist, no exudate or erythema Heart: S1-S2, regular is rhythm Lungs: Decreased breath sounds bilaterally, breathing comfortable Abdomen: Positive bowel sounds, soft, nontender, nondistended, no organomegaly Extremities: + edema cyanosis clubbing Skin: no rash, nodule, warm and dry Neuro: cranial nerves 2-12 intact, speech is fluent, motor/sensory intact - Constitutional Vitals: Temp Pulse Resp BP Pulse Ox 98.3 F 102 H 18 139/70 98 04/03/18 16:11 04/03/18 19:31 04/03/18 19:31 04/03/18 19:31 04/03/18 19:31 Results - Labs CBC & Chem 7: 04/04/18 05:15 04/04/18 05:15 Labs: Abnormal lab results 04/03/18 04/03/18 04/03/18 Range/Units 16:19 16:19 16:19 RDW 16.6 H (13.2-15.2) % Lymph % (Auto) 7.5 L (13.4-35.0) % Lymph # 0.6 L (1.2-5.4) K/mm3 Seg Neutrophils % 88.3 H (40.0-70.0) % Sodium 125 L D (137-145) mmol/L Potassium 6.0 H D (3.6-5.0) mmol/L Chloride 86.0 L (98-107) mmol/L BUN 31 H (7-17) mg/dL Glucose 268 H (65-100) mg/dL AST 59 H (5-40) units/L ALT 57 H (7-56) units/L Total Creatine Kinase 164 H (30-135) units/L CK-MB (CK-2) 8.6 H (0.0-4.0) ng/mL CK-MB (CK-2) Rel Index 5.2 H (0-4) Troponin T 0.042 H (0.00-0.029) ng/mL NT-Pro-B Natriuret Pep (0-900) pg/mL Albumin 3.4 L (3.9-5) g/dL 04/03/18 04/03/18 Range/Units 17:36 20:51 RDW (13.2-15.2) % Lymph % (Auto) (13.4-35.0) % Lymph # (1.2-5.4) K/mm3 Seg Neutrophils % (40.0-70.0) % Sodium (137-145) mmol/L Potassium (3.6-5.0) mmol/L Chloride (98-107) mmol/L BUN (7-17) mg/dL Glucose (65-100) mg/dL AST (5-40) units/L ALT (7-56) units/L Total Creatine Kinase (30-135) units/L CK-MB (CK-2) (0.0-4.0) ng/mL CK-MB (CK-2) Rel Index (0-4) Troponin T 0.035 H (0.00-0.029) ng/mL NT-Pro-B Natriuret Pep 11498 H (0-900) pg/mL Albumin (3.9-5) g/dL - Imaging and Cardiology Chest x-ray: report reviewed CT scan - chest: report reviewed Assessment and Plan Assessment Acute CHF, new onset Hyperkalemia Status post recent admission for pneumonia hypertension diabetes COPD Plan Admit to medicine Start IV Lasix, beta chema, aspirin No ANJUM inhibitor secondary to renal failure Give Kayexalate, follow potassium level Her cardiac enzymes, echo, consult cardiology Check fingersticks and initiate insulin sliding scale DVT prophylaxis, start Levaquin
[2018-04-03] MEDS ORDERED: SODIUM CHLORIDE FLUSH SYRINGE 10 ML IV PRN (22:02)
[2018-04-03] MEDS ORDERED: TYLENOL PO PRN (22:02)
[2018-04-03] MEDS ORDERED: D50W (25GM) Syringe IV PRN (22:02)
[2018-04-03] MEDS: PERCOCET 5/325 PO PRN (22:23)
[2018-04-03] MEDS ORDERED: KIONEX PO ONE (23:04)
[2018-04-03 23:49] LABS: Creatine Kinase MB 7.9 ng/mL (0.0-4.0)
[2018-04-04] MEDS: DUONEB *Not for PRN Use IH SCH ×4 (01:54→20:55)
[2018-04-04] MEDS: PERCOCET 5/325 PO PRN ×3 (05:24→21:39)
[2018-04-04] MEDS: LASIX IV SCH ×2 (05:24→17:48)
[2018-04-04 05:34] LABS: Basophils % (Auto) 0.5 % (0.0-1.8); Hematocrit 38.3 % (30.3-42.9); Hemoglobin 12.6 gm/dl (10.1-14.3); Lymphocytes # (Auto) 0.4 K/mm3 (1.2-5.4); Lymphocytes % (Auto) 9.6 % (13.4-35.0); Mean Corpuscular HGB Conc 33 % (30-34); Mean Corpuscular Volume 93 fl (79-97); Monocytes # (Auto) 0.2 K/mm3 (0.0-0.8); Monocytes % (Auto) 5.5 % (0.0-7.3); Platelet Count 336 K/mm3 (140-440); Red Blood Count 4.14 M/mm3 (3.65-5.03); Red Cell Distribution Width 16.8 % (13.2-15.2)
[2018-04-04 05:54] LABS: Creatine Kinase MB 6.1 ng/mL (0.0-4.0)
[2018-04-04 06:02] LABS: Calcium 8.7 mg/dL (8.4-10.2)
[2018-04-04] MEDS ORDERED: INSULIN LISPRO PROTAMINE SQ SCH (07:30)
[2018-04-04] MEDS ORDERED: [UNRECOGNIZED DRUG - OTHER] SQ SCH (07:30)
[2018-04-04] MEDS ORDERED: CALCIUM GLUCONATE 1,000 MG in NACL 0.9% 100 ML IV STA (07:33)
[2018-04-04] MEDS: KIONEX PO SCH ×2 (08:05→12:09)
[2018-04-04] MEDS: HumaLOG SUB-Q SCH ×4 (08:06→21:40)
[2018-04-04] MEDS ORDERED: LOVENOX SUB-Q SCH (10:00)
[2018-04-04] MEDS: PROTONIX PO SCH (10:36)
[2018-04-04] MEDS: LEVAQUIN 750MG/150ML 750 MG/150 ML BAG IV SCH (10:36)
[2018-04-04] MEDS: LOVENOX SUB-Q SCH (10:36)
[2018-04-04] MEDS: COREG PO SCH ×2 (10:36→21:39)
[2018-04-04] MEDS: SODIUM CHLORIDE FLUSH SYRINGE 10 ML IV SCH ×2 (10:38→21:40)
[2018-04-04] MEDS: ASPIRIN PO SCH (10:52)
--- NOTE | 2018-04-04 12:13 | Event Note ---
Date: 04/04/18 Cardiology consultation is dictated. #1 congestive heart failure #2 hypertension #3 diabetes #4 hyperlipidemia #5 abnormal cardiac enzymes and markedly elevated BNP #6 degenerative joint disease #7 recent history of pneumonia. Patient is seen for cardiac evaluation clinically cardiac status is satisfactory we will review the echocardiogram and follow the patient along with you Thank you for me to participate in the care of this pleasant lady Dr. LESTER Brock
[2018-04-04] MEDS: ZOFRAN IV PRN ×2 (12:14→21:39)
--- NOTE | 2018-04-04 12:49 | Consultation ---
CARDIOLOGY EVALUATION REFERRING PHYSICIAN: Rafat Hernandez MD HISTORY OF PRESENT ILLNESS: This 77-year-old female comes here because of difficulty in breathing. The patient is seen for cardiac evaluation. Apparently, she was diagnosed to have pneumonia and COPD exacerbation and was admitted to the hospital and was discharged recently. Last 2-3 days she has been having increasing difficulty in breathing and also had edema. The patient denies any chest pain. No previous history of myocardial infarction or congestive heart failure. The patient is known to have longstanding history of hypertension, diabetes, hyperlipidemia, and COPD. SOCIAL HISTORY: The patient smokes about 3-4 cigarettes a day. She is in the process of stopping. Does not drink alcohol. REVIEW OF SYSTEMS: HEAD, EYES, EARS, NOSE: No symptoms. ENDOCRINE: Known to have diabetes. GASTROINTESTINAL: No abdominal pain, nausea, or vomiting. The patient had cholecystectomy in the past. GENITOURINARY: No symptoms. CENTRAL NERVOUS SYSTEM: History of cerebrovascular accident about 10 years ago. LOCOMOTOR: The patient is known to have significant back problems. She uses a cane for assistance. HEME/ONC: No symptoms. SKIN: No symptoms. PAST SURGICAL HISTORY: Cholecystectomy, appendectomy, herniorrhaphy. PHYSICAL EXAMINATION: GENERAL: Elderly female, in no acute distress, pleasant and cooperative. VITAL SIGNS: Blood pressure 139/80, pulse 100, respirations 18. Head, Eyes, Ears, Nose and Throat: Unremarkable. NECK: Supple. No thyromegaly. Both carotids are palpable and equal. CHEST: Symmetrical. LUNGS: Reduced breath sounds are noted in the left base. Scattered rhonchi are also noted in this area. ABDOMEN: Soft, nontender, no hepatosplenomegaly. EXTREMITIES: 1+ bilateral pitting edema is present. No calf tenderness noted. LABORATORY DATA: EKG, sinus tachycardia, nonspecific ST abnormalities present. CT of the chest is negative for pulmonary embolism. Chest x-ray: Cardiomegaly, left pleural effusion, interstitial prominence bilaterally. LABORATORY DATA: WBC 4.1, hemoglobin 12.6, hematocrit 38.3. Sodium 128, potassium 3, BUN 33, creatinine 1, blood sugar 379. Troponin 0.042, 0.041, and 0.025. CK-MB is also mildly elevated. BNP . Total cholesterol 165, LDL 118, HDL 51. IMPRESSION: 1. Dyspnea and edema, possible congestive heart failure. Echocardiogram is pending. 2. Recent pneumonitis recuperating slowly. 3. Hypertension. 4. Diabetes. 5. Hyperlipidemia. 6. Degenerative joint disease. 7. Abnormal cardiac enzymes. Her thyroid is seen for cardiac evaluation. The patient is feeling better today. Clinically, she appears to be stable. I will review the echocardiogram and monitor her closely along with. Blood sugar is not well controlled. Overall, prognosis is guarded because of multiple medical issues. Thank you, Dr. Casper for allowing me to participate in the care of this pleasant lady. JOB# [id number] KB/NTS
--- NOTE | 2018-04-04 13:55 | Consultation ---
History of Present Illness Consult date: 04/04/18 Requesting physician: JIMMIE KENNEDY Reason for consult: COPD History of present illness: 77 y/o female admitted with shortness of breath. Found to have systolic heart failure with EF of less than 25%. Follows with my partner Dr. Aguilar. Past History Past Medical History: COPD Medications and Allergies Allergies Allergy/AdvReac Type Severity Reaction Status Date / Time No Known Allergies Allergy Verified 03/26/16 12:41 Home Medications Medication Instructions Recorded Confirmed Last Taken Type Aspirin [Aspirin TAB] 81 mg PO QDAY #30 tablet 07/22/14 04/03/18 1 Day Ago Rx ~02/09/16 Atorvastatin [Lipitor] 40 mg PO QHS #30 tab 07/22/14 04/03/18 1 Day Ago Rx ~02/09/16 Cyclobenzaprine [Flexeril 10 MG 10 mg PO PRN PRN 07/22/14 04/03/18 1 Day Ago History TAB] ~02/09/16 ALBUTEROL Inhaler (OR & NICU) 2 puff IH QID PRN 02/10/16 04/03/18 1 Day Ago History [ProAir HFA Inhaler] ~02/09/16 Insulin Lispro Prot/Lispro 18 unit SQ ACHS 02/10/16 04/03/18 1 Day Ago History [HumaLOG Mix 75/25 Vial] ~02/09/16 Nitroglycerin [Nitrostat] 0.4 mg SL Q5M PRN 02/10/16 04/03/18 1 Week Ago History ~02/03/16 Umeclidinium Brm/Vilanterol Tr 1 each IH QDAY 02/10/16 04/03/18 1 Day Ago History [Anoro Ellipta 62.5-25 Mcg INH] ~02/09/16 Pantoprazole [Protonix TAB] 40 mg PO QDAY #30 tab 03/27/16 04/03/18 1 Day Ago Rx ~02/09/16 Acetaminophen 650 mg PO QID 04/03/18 04/03/18 Unknown History Acetaminophen/Codeine [Tylenol 1 tab PO Q6H PRN 04/03/18 04/03/18 Unknown History /Codeine # 3 tab] Ondansetron [Zofran Odt] 4 mg PO TID PRN 04/03/18 04/03/18 Unknown History Active Meds: Active Medications Acetaminophen (Tylenol) 650 mg PO Q4H PRN PRN Reason: Pain MILD(1-3)/Fever >100.5/FERREIRA Albuterol/Ipratropium (Duoneb *Not For Prn Use*) 1 ampul IH Q6HRT [facility] Last Admin: 04/04/18 13:32 Dose: 1 ampul Documented by: Aspirin (Aspirin) 81 mg PO QDAY [facility] Last Admin: 04/04/18 10:52 Dose: 81 mg Documented by: Atorvastatin Calcium (Lipitor) 40 mg PO QHS [facility] Carvedilol (Coreg) 3.125 mg PO BID [facility] Last Admin: 04/04/18 10:36 Dose: 3.125 mg Documented by: Dextrose (D50w (25gm) Syringe) 50 ml IV PRN PRN PRN Reason: Hypoglycemia Enoxaparin Sodium (Lovenox) 40 mg SUB-Q QDAY@1000 [facility] Last Admin: 04/04/18 10:36 Dose: 40 mg Documented by: Furosemide (Lasix) 40 mg IV BID@0600,1800 [facility] Last Admin: 04/04/18 05:24 Dose: 40 mg Documented by: Levofloxacin/Dextrose (Levaquin 750mg/150ml) 750 mg in 150 mls @ 100 mls/hr IV Q24HR [facility]; Protocol Last Admin: 04/04/18 10:36 Dose: 100 mls/hr Documented by: Insulin Human Isoph/Insulin Regular (Humulin 70/30) 10 unit SUB-Q BIDDIAB [facility] Last Admin: 04/04/18 08:06 Dose: 10 unit Documented by: Insulin Human Lispro ([facility]alog) [facility] Protocol Last Admin: 04/04/18 12:09 Dose: 6 unit Documented by: Ondansetron HCl (Zofran) 4 mg IV Q8H PRN PRN Reason: Nausea And Vomiting Last Admin: 04/04/18 12:14 Dose: 4 mg Documented by: Oxycodone/Acetaminophen (Percocet 5/325) 1 tab PO Q6H PRN PRN Reason: Pain, Moderate (4-6) Last Admin: 04/04/18 12:14 Dose: 1 tab Documented by: Pantoprazole Sodium (Protonix) 40 mg PO QDAY [facility] Last Admin: 04/04/18 10:36 Dose: 40 mg Documented by: Sodium Chloride (Sodium Chloride Flush Syringe 10 Ml) 10 ml IV BID [facility] Last Admin: 04/04/18 10:38 Dose: 10 ml Documented by: Sodium Chloride (Sodium Chloride Flush Syringe 10 Ml) 10 ml IV PRN PRN PRN Reason: LINE FLUSH Review of Systems All systems: negative Physical Examination Vital signs: Vital Signs Temp Pulse Resp BP Pulse Ox 98.9 F 120 H 18 220/102 96 04/03/18 15:49 04/03/18 15:49 04/03/18 15:49 04/03/18 15:49 04/03/18 15:49 General appearance: no acute distress, alert Eyes: non-icteric ENT: oropharynx moist Neck: supple Ascultation: Bilateral: diminished breath sounds, rales (bibasilar) Percussion: Bilateral: not dull Tactile fremitus: Bilateral: normal Cardiovascular: regular rate and rhythm Gastrointestinal: normoactive bowel sounds, soft Results - Laboratory Findings CBC and BMP: 04/04/18 05:15 04/05/18 06:02 Abnormal lab findings: Abnormal Labs 04/03/18 04/03/18 04/03/18 16:19 16:19 16:19 WBC RDW 16.6 H Lymph % (Auto) 7.5 L Lymph # 0.6 L Seg Neutrophils % 88.3 H Sodium 125 L D Potassium 6.0 H D Chloride 86.0 L BUN 31 H Glucose 268 H POC Glucose AST 59 H ALT 57 H Total Creatine Kinase 164 H CK-MB (CK-2) 8.6 H CK-MB (CK-2) Rel Index 5.2 H Troponin T 0.042 H NT-Pro-B Natriuret Pep Albumin 3.4 L 04/03/18 04/03/18 04/03/18 17:36 20:51 22:45 WBC RDW Lymph % (Auto) Lymph # Seg Neutrophils % Sodium Potassium Chloride BUN Glucose POC Glucose 231 H AST ALT Total Creatine Kinase CK-MB (CK-2) CK-MB (CK-2) Rel Index Troponin T 0.035 H NT-Pro-B Natriuret Pep 63721 H Albumin 04/03/18 04/03/18 04/04/18 23:20 23:20 05:15 WBC 4.1 L RDW 16.8 H Lymph % (Auto) 9.6 L Lymph # 0.4 L Seg Neutrophils % 84.4 H Sodium Potassium Chloride BUN Glucose POC Glucose AST ALT Total Creatine Kinase CK-MB (CK-2) 7.9 H CK-MB (CK-2) Rel Index 7.1 H Troponin T 0.041 H NT-Pro-B Natriuret Pep Albumin 04/04/18 04/04/18 04/04/18 05:15 05:15 05:28 WBC RDW Lymph % (Auto) Lymph # Seg Neutrophils % Sodium 128 L Potassium 6.0 H Chloride 88.9 L BUN 33 H Glucose 414 H POC Glucose 379 H AST ALT Total Creatine Kinase CK-MB (CK-2) 6.1 H CK-MB (CK-2) Rel Index 6.9 H Troponin T NT-Pro-B Natriuret Pep Albumin 04/04/18 11:27 WBC RDW Lymph % (Auto) Lymph # Seg Neutrophils % Sodium Potassium Chloride BUN Glucose POC Glucose 281 H AST ALT Total Creatine Kinase CK-MB (CK-2) CK-MB (CK-2) Rel Index Troponin T NT-Pro-B Natriuret Pep Albumin - Diagnostic Findings CT scan - chest: image reviewed Assessment and Plan 77 y/o female admitted with dyspnea on exertion and elevated BNP. 1. Reviewed CT, has bilateral pleural effusions but lung parenchyma is ok. There is some nodularity in the lower lobes, on right and left. If enough fluid to tap, could do so on Friday and send for cytology but most likely fluid is related to CHF. Nodule is small, hard to biopsy, may need to watch with serial CT's. 2. No structural evidence of COPD 3. Agree with holding on steroid therapy 4. Patient takes anoro at home. Not on formulary here. Can either start BID S ymbicort or have patient take home medication once verified with pharmacy. 5. Continue IV diuresis
--- NOTE | 2018-04-04 14:35 | Consultation ---
History of Present Illness - Reason for Consult Consult date: 04/04/18 hyperkalemia - History of Present Illness The patient is a 77 YO female with history significant for Hypertension, DM type 2, COPD. Systolic CHF and Tobacco smoking who presented to [facility] ER with complaint of shortness of breath and lower extremity edema that started yesterday. Patient was discharged from the hospital on 03/31/18 after treatment of pneumonia and COPD exacerbation. She continues to smkoe about a pack of c igarettes a day. Patient admits cough productive of brownish sputum. She denies any CP, N, V, D, abd pain, fever, chills, dysuria or hematuria. Potassium was 6 on admission. Nephrology was consulted for further evaluation. Past History Past Medical History: diabetes, hypertension, hyperlipidemia Medications and Allergies Allergies Allergy/AdvReac Type Severity Reaction Status Date / Time No Known Allergies Allergy Verified 03/26/16 12:41 Home Medications Medication Instructions Recorded Confirmed Last Taken Type Aspirin [Aspirin TAB] 81 mg PO QDAY #30 tablet 07/22/14 04/03/18 1 Day Ago Rx ~02/09/16 Atorvastatin [Lipitor] 40 mg PO QHS #30 tab 07/22/14 04/03/18 1 Day Ago Rx ~02/09/16 Cyclobenzaprine [Flexeril 10 MG 10 mg PO PRN PRN 07/22/14 04/03/18 1 Day Ago History TAB] ~02/09/16 ALBUTEROL Inhaler (OR & NICU) 2 puff IH QID PRN 02/10/16 04/03/18 1 Day Ago History [ProAir HFA Inhaler] ~02/09/16 Insulin Lispro Prot/Lispro 18 unit SQ ACHS 02/10/16 04/03/18 1 Day Ago History [HumaLOG Mix 75/25 Vial] ~02/09/16 Nitroglycerin [Nitrostat] 0.4 mg SL Q5M PRN 02/10/16 04/03/18 1 Week Ago History ~02/03/16 Umeclidinium Brm/Vilanterol Tr 1 each IH QDAY 02/10/16 04/03/18 1 Day Ago History [Anoro Ellipta 62.5-25 Mcg INH] ~02/09/16 Pantoprazole [Protonix TAB] 40 mg PO QDAY #30 tab 03/27/16 04/03/18 1 Day Ago Rx ~02/09/16 Acetaminophen 650 mg PO QID 04/03/18 04/03/18 Unknown History Acetaminophen/Codeine [Tylenol 1 tab PO Q6H PRN 04/03/18 04/03/18 Unknown History /Codeine # 3 tab] Ondansetron [Zofran Odt] 4 mg PO TID PRN 04/03/18 04/03/18 Unknown History Active Meds: Active Medications Acetaminophen (Tylenol) 650 mg PO Q4H PRN PRN Reason: Pain MILD(1-3)/Fever >100.5/FERREIRA Albuterol/Ipratropium (Duoneb *Not For Prn Use*) 1 ampul IH Q6HRT [facility] Last Admin: 04/04/18 13:32 Dose: 1 ampul Documented by: Aspirin (Aspirin) 81 mg PO QDAY [facility] Last Admin: 04/04/18 10:52 Dose: 81 mg Documented by: Atorvastatin Calcium (Lipitor) 40 mg PO QHS [facility] Carvedilol (Coreg) 3.125 mg PO BID [facility] Last Admin: 04/04/18 10:36 Dose: 3.125 mg Documented by: Dextrose (D50w (25gm) Syringe) 50 ml IV PRN PRN PRN Reason: Hypoglycemia Enoxaparin Sodium (Lovenox) 40 mg SUB-Q QDAY@1000 [facility] Last Admin: 04/04/18 10:36 Dose: 40 mg Documented by: Furosemide (Lasix) 40 mg IV BID@0600,1800 [facility] Last Admin: 04/04/18 05:24 Dose: 40 mg Documented by: Levofloxacin/Dextrose (Levaquin 750mg/150ml) 750 mg in 150 mls @ 100 mls/hr IV Q24HR [facility]; Protocol Last Admin: 04/04/18 10:36 Dose: 100 mls/hr Documented by: Insulin Human Isoph/Insulin Regular (Humulin 70/30) 10 unit SUB-Q BIDDIAB [facility] Last Admin: 04/04/18 08:06 Dose: 10 unit Documented by: Insulin Human Lispro (Humalog) 0 unit SUB-Q ACHS [facility]; Protocol Last Admin: 04/04/18 12:09 Dose: 6 unit Documented by: Ondansetron HCl (Zofran) 4 mg IV Q8H PRN PRN Reason: Nausea And Vomiting Last Admin: 04/04/18 12:14 Dose: 4 mg Documented by: Oxycodone/Acetaminophen (Percocet 5/325) 1 tab PO Q6H PRN PRN Reason: Pain, Moderate (4-6) Last Admin: 04/04/18 12:14 Dose: 1 tab Documented by: Pantoprazole Sodium (Protonix) 40 mg PO QDAY [facility] Last Admin: 04/04/18 10:36 Dose: 40 mg Documented by: Sodium Chloride (Sodium Chloride Flush Syringe 10 Ml) 10 ml IV BID [facility] Last Admin: 04/04/18 10:38 Dose: 10 ml Documented by: Sodium Chloride (Sodium Chloride Flush Syringe 10 Ml) 10 ml IV PRN PRN PRN Reason: LINE FLUSH Review of Systems Constitutional: no weight loss, no weight gain, no fever, no chills, no anorexia Breasts: deferred Cardiovascular: edema, shortness of breath, dyspnea on exertion, paroxysmal nocturnal dyspnea, high blood pressure, leg edema, no chest pain, no orthopnea, no palpitations, no syncope, no lightheadedness Respiratory: cough, cough with sputum, excessive sputum, shortness of breath, dyspnea on exertion, no hemoptysis, no home oxygen Gastrointestinal: no abdominal pain, no nausea, no vomiting, no diarrhea, no melena Genitourinary Female: no dysuria, no hematuria Musculoskeletal: no redness of joints, no hot joints, no prior amputations Integumentary: no rash, no wounds, no jaundice Neurological: no paralysis, no seizures, no change in speech, no change in mentation, no confusion, no double vision, no loss of vision, no paralysis Exam - Vital Signs Vital signs: Vital Signs Temp Pulse Resp BP Pulse Ox 98.9 F 120 H 18 220/102 96 04/03/18 15:49 04/03/18 15:49 04/03/18 15:49 04/03/18 15:49 04/03/18 15:49 - General Appearance General appearance: well-developed, appears stated age, other (emaciated, not in distress) EENT: ATNC, PERRL, mucous membranes moist, hearing intact, vision intact Neck: Present: neck supple, trachea midline Respiratory: Decreased Breath Sounds Heart: regular, S1S2, no murmurs Gastrointestinal: Present: normoactive bowel sounds. Absent: tenderness, distended Integumentary: no rash, warm and dry Neurologic: no focal deficit, no asterixis, alert and oriented x3 Musculoskeletal: Present: other (1+ edema of both LEs noted) Psychiatric: cooperative Results - Lab Results 04/04/18 05:15 04/04/18 15:00 Most recent lab results Calcium 8.7 mg/dL (8.4-10.2) 04/04/18 05:15 Assessment and Plan 1. Hyperkalemia: Patient was admitted with hyperkalemia. Risk factors include chronic diabetic, CHF and beta blockers. K level is better with treatment. Continue Lasix. Monitor potassium level. 2. FEN: Volume overload, continue IV Lasix. 3. Acute exacerbation of chronic systolic CHF. 4. Status post recent admission for pneumonia. 5. Diabetes 6. COPD: Smoking cessation.
[2018-04-04] MEDS ORDERED: FLEXERIL PO PRN (23:09)
[2018-04-04] MEDS: HABITROL TD SCH (23:33)
[2018-04-05] MEDS: DUONEB *Not for PRN Use IH SCH ×3 (01:52→14:02)
[2018-04-05] MEDS: LASIX IV SCH (05:31)
--- NOTE | 2018-04-05 05:36 | Progress Note ---
Assessment and Plan Assessment and plan: Acute on chronic resp failure due to COPD exacerbation, acute CHF Supplemental Oxygen. COPD excaerbation Duoneb, Consult Pulm. Acute CHF Echo to determine EF Left pleural effusion, likely due to CHF Diabetes mellitus type 2. Fingerstick qac and hs Hypponatremia. Consuled Nephrology Hyperkalemia. Give Insulin, calcium kayexalate and repeat. Hypertension. Full code status History Interval history: Shortness of breath leg edema Hospitalist Physical - Physical exam Narrative exam: GEN: Not in acute distress,lying in bed HEENT: Normocephalic, atraumatic, Neck: supple, No JVD Lungs: Decreased breath sounds bilat, Bilateral rhonhi, crackles, wheeze Heart:S1 and S2 regular, no murmurs, rubs or gallop, Abd:soft, non tender, non distended, normal bowel sounds Ext: Bilat leg edema,no clubbing or cyanosis Neuro: Awake,alert, oriented x 3, No focal signs Psych:Normal mood - Constitutional Vitals: Temp Pulse Resp BP Pulse Ox 98.1 F 75 20 106/54 89 04/04/18 23:47 04/05/18 02:12 04/05/18 02:12 04/04/18 23:47 04/04/18 23:47 Results - Labs CBC & Chem 7: 04/04/18 05:15 04/04/18 15:00 Labs: Laboratory Last Values WBC 4.1 K/mm3 (4.5-11.0) L 04/04/18 05:15 RBC 4.14 M/mm3 (3.65-5.03) 04/04/18 05:15 Hgb 12.6 gm/dl (10.1-14.3) 04/04/18 05:15 Hct 38.3 % (30.3-42.9) 04/04/18 05:15 MCV 93 fl (79-97) 04/04/18 05:15 MCH 30 pg (28-32) 04/04/18 05:15 MCHC 33 % (30-34) 04/04/18 05:15 RDW 16.8 % (13.2-15.2) H 04/04/18 05:15 Plt Count 336 K/mm3 (140-440) 04/04/18 05:15 Lymph % (Auto) 9.6 % (13.4-35.0) L 04/04/18 05:15 [place] % (Auto) 5.5 % (0.0-7.3) 04/04/18 05:15 Eos % (Auto) 0.0 % (0.0-4.3) 04/04/18 05:15 Baso % (Auto) 0.5 % (0.0-1.8) 04/04/18 05:15 Lymph # 0.4 K/mm3 (1.2-5.4) L 04/04/18 05:15 [place] # 0.2 K/mm3 (0.0-0.8) 04/04/18 05:15 Eos # 0.0 K/mm3 (0.0-0.4) 04/04/18 05:15 Baso # 0.0 K/mm3 (0.0-0.1) 04/04/18 05:15 Seg Neutrophils % 84.4 % (40.0-70.0) H 04/04/18 05:15 Seg Neutrophils # 3.5 K/mm3 (1.8-7.7) 04/04/18 05:15 Sodium 128 mmol/L (137-145) L 04/04/18 05:15 Potassium 4.3 mmol/L (3.6-5.0) D 04/04/18 15:00 Chloride 88.9 mmol/L (98-107) L 04/04/18 05:15 Carbon Dioxide 30 mmol/L (22-30) 04/04/18 05:15 Anion Gap 15 mmol/L 04/04/18 05:15 BUN 33 mg/dL (7-17) H 04/04/18 05:15 Creatinine 1.0 mg/dL (0.7-1.2) 04/04/18 05:15 Estimated GFR 54 ml/min 04/04/18 05:15 BUN/Creatinine Ratio 33 % 04/04/18 05:15 Glucose 414 mg/dL (65-100) H 04/04/18 05:15 POC Glucose 128 (70-105) H 04/04/18 20:57 Lactic Acid 1.60 mmol/L (0.7-2.0) 04/03/18 16:19 Calcium 8.7 mg/dL (8.4-10.2) 04/04/18 05:15 Total Bilirubin 0.50 mg/dL (0.1-1.2) 04/03/18 16:19 AST 59 units/L (5-40) H 04/03/18 16:19 ALT 57 units/L (7-56) H 04/03/18 16:19 Alkaline Phosphatase 87 units/L (35-129) 04/03/18 16:19 Total Creatine Kinase 88 units/L (30-135) 04/04/18 05:15 CK-MB (CK-2) 6.1 ng/mL (0.0-4.0) H 04/04/18 05:15 CK-MB (CK-2) Rel Index 6.9 (0-4) H 04/04/18 05:15 Troponin T 0.025 ng/mL (0.00-0.029) 04/04/18 05:15 NT-Pro-B Natriuret Pep 26116 pg/mL (0-900) H 04/03/18 17:36 Total Protein 7.0 g/dL (6.3-8.2) 04/03/18 16:19 Albumin 3.4 g/dL (3.9-5) L 04/03/18 16:19 Albumin/Globulin Ratio 0.9 % 04/03/18 16:19 Triglycerides 107 mg/dL (2-149) 04/03/18 16:19 Cholesterol 165 mg/dL (50-199) 04/03/18 16:19 LDL Cholesterol Direct 118 mg/dL (50-130) 04/03/18 16:19 HDL Cholesterol 51 mg/dL (40-59) 04/03/18 16:19 Cholesterol/HDL Ratio 3.23 % 04/03/18 16:19
[2018-04-05 07:13] LABS: Calcium 8.4 mg/dL (8.4-10.2)
[2018-04-05] MEDS: PERCOCET 5/325 PO PRN (07:35)
[2018-04-05] MEDS: HumaLOG SUB-Q SCH ×2 (08:51→12:13)
[2018-04-05] MEDS ORDERED: MAGNESIUM SULFATE 2GM/50ML 2 GM/50 ML BAG IV ONE (09:00)
[2018-04-05] MEDS ORDERED: MAG-OX PO SCH (10:00)
[2018-04-05] MEDS: HABITROL TD SCH (10:29)
[2018-04-05] MEDS: ASPIRIN PO SCH (10:29)
[2018-04-05] MEDS: COREG PO SCH (10:29)
[2018-04-05] MEDS: LOVENOX SUB-Q SCH (10:29)
[2018-04-05] MEDS: PROTONIX PO SCH (10:29)
--- NOTE | 2018-04-05 11:23 | Discharge Summary ---
Providers - Providers Date of Admission: 04/03/18 21:55 Date of discharge: 04/05/18 Attending physician: JIMMIE KENNEDY 04/03/18 22:02 Consult to Physician [CONS] Routine Comment: Consulting Provider: SYLVIA REYNOLDS Physician Instructions: Reason For Exam: chf 04/04/18 07:37 Consult to Physician [CONS] Routine Comment: Consulting Provider: MILAGRO CRISOSTOMO Physician Instructions: Reason For Exam: Hyperkalemia, hyponatremia 04/04/18 11:39 Consult to Physician [CONS] Routine Comment: Consulting Provider: TYRONE ESPARZA Physician Instructions: Reason For Exam: COPD exacerbation Primary care physician: ASSOCIATE PROGRAM MANAGER Hospitalization Condition: Fair Hospital course: Patient is 78 yo with COPD, htn, diabetes presented with shortness of breath, leg swelling. She was evaluated in ED, diagnosed with acute respiratory failure due to COPD exacerbation and acute CHF and hyponatremia, hyperkalemia.. She was started on Lasix iv, steroids and admitted. She was seen by cardiology and Nephrology. She improved in few days. Home Oxygen testing revealed she needed home Oxygen on discharge. She did not want to wait for this to be arranged, so she signed out against medical advice. Total time spent on discharge, 33 mins Disposition: [id number] LEFT AGAINST MED ADVICE - Discharge Diagnoses (1) COPD exacerbation Status: Acute (2) Hyperkalemia Status: Acute (3) Hyponatremia Status: Acute (4) Acute systolic CHF (congestive heart failure) Status: Acute (5) Acute respiratory failure Status: Acute (6) Acute respiratory failure with hypoxemia Status: Acute (7) Left against medical advice Status: Acute Core Measure Documentation - Palliative Care Palliative Care/ Comfort Measures: Not Applicable - Core Measures Any of the following diagnoses?: heart failure - Heart Failure Discharge Requirements ANJUM/ARB for LVSD if EF <40%: No Reason for no ANJUM/ARB: Hyperkalemia Beta chema at discharge: Yes Exam - Constitutional Vitals: Temp Pulse Resp BP Pulse Ox 98.1 F 80 18 106/54 91 04/04/18 23:47 04/05/18 07:50 04/05/18 07:50 04/04/18 23:47 04/05/18 08:14 Plan Activity: advance as tolerated Diet: low fat, low cholesterol, low salt, diabetic Additional Instructions: 1.Follow up with PCP in 1 week. 2.Follow up with Dr. David Brock in 1 week. 3.Follow up with Dr. Esparza Pulm in 1 week. 4.Lung nodules to be followed by Dr. Esparza, Pulmonology Follow up with: PRIMARY CARE, [Primary Care Provider] - 7 Days Forms: AMA Form Prescriptions: Carvedilol [Coreg] 3.125 mg PO BID #60 tablet Magnesium Oxide 400 mg PO BID 7 Days tablet
--- NOTE | 2018-04-05 11:41 | Progress Note ---
Assessment and Plan 77 y/o female admitted with dyspnea on exertion and elevated BNP. No new recs from my standpoint. Can follow up with Jeff. patient states that she is not on home O2 and will need a walk test prior to discharge. 1. Reviewed CT, has bilateral pleural effusions but lung parenchyma is ok. There is some nodularity in the lower lobes, on right and left. If enough fluid to tap, could do so on Friday and send for cytology but most likely fluid is related to CHF. Nodule is small, hard to biopsy, may need to watch with serial CT's. 2. No structural evidence of COPD 3. Agree with holding on steroid therapy 4. Patient takes anoro at home. Not on formulary here. Can either start BID Symbicort or have patient take home medication once verified with pharmacy. 5. Continue IV diuresis Subjective Date of service: 04/05/18 Interval history: Feels better, wants to go home. Objective Vital Signs - 12hr 04/04/18 04/05/18 04/05/18 23:47 01:52 02:12 Temperature 98.1 F Pulse Rate 93 H Pulse Rate [ 76 75 Anterior Bilateral Throughout] Respiratory 18 Rate Respiratory 18 20 Rate [Anterior Bilateral Throughout] Blood Pressure 106/54 O2 Sat by Pulse 89 Oximetry 04/05/18 04/05/18 04/05/18 06:08 07:35 07:40 Temperature Pulse Rate 98 H Pulse Rate [ 78 Anterior Bilateral Throughout] Respiratory 20 Rate Respiratory 18 Rate [Anterior Bilateral Throughout] Blood Pressure O2 Sat by Pulse Oximetry 04/05/18 04/05/18 04/05/18 07:43 07:50 08:14 Temperature Pulse Rate Pulse Rate [ 80 Anterior Bilateral Throughout] Respiratory 22 Rate Respiratory 18 Rate [Anterior Bilateral Throughout] Blood Pressure O2 Sat by Pulse 91 91 Oximetry Constitutional: no acute distress, alert Eyes: non-icteric ENT: oropharynx moist Neck: supple Ascultation: Bilateral: diminished breath sounds, rales (bibasilar) Percussion: Bilateral: not dull Tactile fremitus: Bilateral: normal Cardiovascular: regular rate and rhythm Gastrointestinal: normoactive bowel sounds, soft CBC and BMP: 04/04/18 05:15 04/05/18 06:02 Abnormal lab findings: Abnormal Labs 01/18/19 01/18/19 01/18/19 16:19 16:19 16:19 WBC RDW 16.6 H Lymph % (Auto) 7.5 L Lymph # 0.6 L Seg Neutrophils % 88.3 H Sodium 125 L D Potassium 6.0 H D Chloride 86.0 L Carbon Dioxide BUN 31 H Glucose 268 H POC Glucose Magnesium AST 59 H ALT 57 H Total Creatine Kinase 164 H CK-MB (CK-2) 8.6 H CK-MB (CK-2) Rel Index 5.2 H Troponin T 0.042 H NT-Pro-B Natriuret Pep Albumin 3.4 L 04/03/18 04/03/18 04/03/18 17:36 20:51 22:45 WBC RDW Lymph % (Auto) Lymph # Seg Neutrophils % Sodium Potassium Chloride Carbon Dioxide BUN Glucose POC Glucose 231 H Magnesium AST ALT Total Creatine Kinase CK-MB (CK-2) CK-MB (CK-2) Rel Index Troponin T 0.035 H NT-Pro-B Natriuret Pep 05108 H Albumin 04/03/18 04/03/18 04/04/18 23:20 23:20 05:15 WBC 4.1 L RDW 16.8 H Lymph % (Auto) 9.6 L Lymph # 0.4 L Seg Neutrophils % 84.4 H Sodium Potassium Chloride Carbon Dioxide BUN Glucose POC Glucose Magnesium AST ALT Total Creatine Kinase CK-MB (CK-2) 7.9 H CK-MB (CK-2) Rel Index 7.1 H Troponin T 0.041 H NT-Pro-B Natriuret Pep Albumin 04/04/18 04/04/18 04/04/18 05:15 05:15 05:28 WBC RDW Lymph % (Auto) Lymph # Seg Neutrophils % Sodium 128 L Potassium 6.0 H Chloride 88.9 L Carbon Dioxide BUN 33 H Glucose 414 H POC Glucose 379 H Magnesium AST ALT Total Creatine Kinase CK-MB (CK-2) 6.1 H CK-MB (CK-2) Rel Index 6.9 H Troponin T NT-Pro-B Natriuret Pep Albumin 04/04/18 04/04/18 04/04/18 11:27 16:52 20:57 WBC RDW Lymph % (Auto) Lymph # Seg Neutrophils % Sodium Potassium Chloride Carbon Dioxide BUN Glucose POC Glucose 281 H 121 H 128 H Magnesium AST ALT Total Creatine Kinase CK-MB (CK-2) CK-MB (CK-2) Rel Index Troponin T NT-Pro-B Natriuret Pep Albumin 04/05/18 04/05/18 05:45 06:02 WBC RDW Lymph % (Auto) Lymph # Seg Neutrophils % Sodium Potassium Chloride 90.9 L Carbon Dioxide 36 H BUN 28 H Glucose 140 H POC Glucose 138 H Magnesium 1.60 L AST ALT Total Creatine Kinase CK-MB (CK-2) CK-MB (CK-2) Rel Index Troponin T NT-Pro-B Natriuret Pep Albumin
[2018-04-05] MEDS: LEVAQUIN 750MG/150ML 750 MG/150 ML BAG IV SCH (12:14)
--- NOTE | 2018-04-05 12:16 | Progress Note ---
Assessment and Plan Patient is doing better today. She had good diuresis. Cardiac examination is satisfactory. Echocardiogram is reviewed and this is explained to the patient and discussed with Dr. Hernandez also. Patient has significant systolic dysfunction with ejection fraction of about 25-30%. Currently because of the high potassium the ANJUM inhibitor has not been given Will continue her on carvedilol and patient will be seen again in the office in 2 weeks if the patient is discharged. - Patient Problems (1) CHF (congestive heart failure) Current Visit: Yes Status: Acute Qualifiers: Heart failure type: unspecified Heart failure chronicity: acute Qualified Code(s): I50.9 - Heart failure, unspecified (2) COPD with exacerbation Current Visit: Yes Status: Acute Subjective Date of service: 04/05/18 Interval history: Patient is feeling much better. Denies chest pain difficulty in breathing or palpitations. She had good diuresis. Objective Vital Signs Temp Pulse Pulse Resp Resp BP Pulse Ox 04/05/18 08:14 91 04/05/18 07:50 80 18 04/05/18 07:43 22 91 04/05/18 07:40 78 18 04/05/18 07:35 20 04/05/18 06:08 98 H 04/05/18 02:12 75 20 04/05/18 01:52 76 18 04/04/18 23:47 98.1 F 93 H 18 106/54 89 04/04/18 21:08 78 20 04/04/18 20:55 18 97 04/04/18 19:13 98.2 F 105 H 18 132/69 95 04/04/18 16:48 98.0 F 101 H 16 127/77 97 04/04/18 13:14 18 04/04/18 12:14 18 - Physical Examination General: Appears Well Neck: Positive: neck supple, trachea midline Cardiac: Positive: Regular Rhythm Lungs: Positive: clear to auscultation Abdomen: Positive: Soft Extremities: Present: normal - Labs and Meds Comprehensive Metabolic Panel 04/04/18 04/05/18 Range/Units 15:00 06:02 Sodium 139 D (137-145) mmol/L Potassium 4.3 D 3.6 (3.6-5.0) mmol/L Chloride 90.9 L (98-107) mmol/L Carbon Dioxide 36 H (22-30) mmol/L BUN 28 H (7-17) mg/dL Creatinine 1.1 (0.7-1.2) mg/dL Glucose 140 H (65-100) mg/dL Calcium 8.4 (8.4-10.2) mg/dL
--- NOTE | 2018-04-05 12:59 | Progress Note ---
Assessment and Plan 1. Hyperkalemia: Patient was admitted with hyperkalemia. K level is better with treatment. Continue Lasix. Monitor potassium level. 2. FEN: Volume overload, continue IV Lasix. 3. Acute exacerbation of chronic systolic CHF. 4. Status post recent admission for pneumonia. 5. Diabetes 6. COPD: Smoking cessation. F/u with me in 1-2 weeks. Subjective Date of service: 04/05/18 Interval history: Patient is feeling better. Objective - Vital Signs Vital signs: Vital Signs - 12hr 04/05/18 04/05/18 04/05/18 01:52 02:12 06:08 Pulse Rate 98 H Pulse Rate [ 76 75 Anterior Bilateral Throughout] Respiratory Rate Respiratory 18 20 Rate [Anterior Bilateral Throughout] O2 Sat by Pulse Oximetry 04/05/18 04/05/18 04/05/18 07:35 07:40 07:43 Pulse Rate Pulse Rate [ 78 Anterior Bilateral Throughout] Respiratory 20 22 Rate Respiratory 18 Rate [Anterior Bilateral Throughout] O2 Sat by Pulse 91 Oximetry 04/05/18 04/05/18 07:50 08:14 Pulse Rate Pulse Rate [ 80 Anterior Bilateral Throughout] Respiratory Rate Respiratory 18 Rate [Anterior Bilateral Throughout] O2 Sat by Pulse 91 Oximetry - General Appearance General appearance: well-developed, appears stated age, other (thin built, not in distress) EENT: ATNC, PERRL, mucous membranes moist, hearing intact, vision intact Neck: supple Respiratory: Present: Clear to Ascultation Cardiology: regular, S1S2, no murmurs Gastrointestinal: normoactive bowel sounds, no tenderness, no distended Integumentary: no rash, warm and dry Neurologic: no focal deficit, no asterixis, alert and oriented x3 Musculoskeletal: other (bilateral LE edema noted) Psychiatric: cooperative - Lab 04/04/18 05:15 04/05/18 06:02 Most recent lab results Calcium 8.4 mg/dL (8.4-10.2) 04/05/18 06:02 Phosphorus 3.60 mg/dL (2.5-4.5) 04/05/18 06:02 Magnesium 1.60 mg/dL (1.7-2.3) L 04/05/18 06:02 Medications & Allergies - Medications Allergies/Adverse Reactions: Allergies No Known Allergies Allergy (Verified 03/26/16 12:41) Home Medications: Home Medications Medication Instructions Recorded Confirmed Last Taken Type Aspirin [Aspirin TAB] 81 mg PO QDAY #30 tablet 07/22/14 04/03/18 1 Day Ago Rx ~02/09/16 Atorvastatin [Lipitor] 40 mg PO QHS #30 tab 07/22/14 04/03/18 1 Day Ago Rx ~02/09/16 Cyclobenzaprine [Flexeril 10 MG 10 mg PO PRN PRN 07/22/14 04/03/18 1 Day Ago History TAB] ~02/09/16 ALBUTEROL Inhaler (OR & NICU) 2 puff IH QID PRN 02/10/16 04/03/18 1 Day Ago History [ProAir HFA Inhaler] ~02/09/16 Insulin Lispro Prot/Lispro 18 unit SQ ACHS 02/10/16 04/03/18 1 Day Ago History [HumaLOG Mix 75/25 Vial] ~02/09/16 Nitroglycerin [Nitrostat] 0.4 mg SL Q5M PRN 02/10/16 04/03/18 1 Week Ago History ~02/03/16 Umeclidinium Brm/Vilanterol Tr 1 each IH QDAY 02/10/16 04/03/18 1 Day Ago History [Anoro Ellipta 62.5-25 Mcg INH] ~02/09/16 Pantoprazole [Protonix TAB] 40 mg PO QDAY #30 tab 03/27/16 04/03/18 1 Day Ago Rx ~02/09/16 Acetaminophen 650 mg PO QID 04/03/18 04/03/18 Unknown History Acetaminophen/Codeine [Tylenol 1 tab PO Q6H PRN 04/03/18 04/03/18 Unknown History /Codeine # 3 tab] Ondansetron [Zofran ODT TAB] 4 mg PO TID PRN 04/03/18 04/03/18 Unknown History Carvedilol [Coreg] 3.125 mg PO BID #60 tablet 04/05/18 Unknown Rx Magnesium Oxide 400 mg PO BID 7 Days tablet 04/05/18 Unknown Rx Active Medications: Generic Name Dose Route Start Last Admin Trade Name Freq PRN Reason Stop Dose Admin Acetaminophen 650 mg 04/03/18 22:02 Tylenol PO Q4H PRN Pain MILD(1-3)/Fever >100.5/FERREIRA Albuterol/Ipratropium 1 ampul 04/04/18 02:00 04/05/18 07:46 Duoneb *Not For Prn Use* IH 1 ampul Q6HRT JACKIE Administration Aspirin 81 mg 04/04/18 10:00 04/05/18 10:29 Aspirin PO 81 mg QDAY JACKIE Administration Atorvastatin Calcium 40 mg 04/04/18 22:00 04/04/18 21:39 Lipitor PO 40 mg QHS JACKIE Administration Carvedilol 3.125 mg 04/04/18 10:00 04/05/18 10:29 Coreg PO 3.125 mg BID JACKIE Administration Cyclobenzaprine HCl 10 mg 04/04/18 23:09 04/04/18 23:33 Flexeril PO 10 mg Q8H PRN Administration Muscle Spasm Dextrose 50 ml 04/03/18 22:02 D50w (25gm) Syringe IV PRN PRN Hypoglycemia Enoxaparin Sodium 40 mg 04/04/18 10:00 04/05/18 10:29 Lovenox SUB-Q 40 mg QDAY@1000 JACKIE Administration Furosemide 40 mg 04/04/18 06:00 04/05/18 05:31 Lasix IV 40 mg BID@0600,1800 JACKIE Administration Levofloxacin/Dextrose 750 mg in 150 mls @ 100 mls/hr 04/04/18 10:00 04/05/18 12:14 Levaquin 750mg/150ml IV 100 mls/hr Q24HR JACKIE Administration Protocol Insulin Human Isoph/Insulin Regular 10 unit 04/04/18 08:00 04/05/18 09:20 Humulin 70/30 SUB-Q 10 unit BIDDIAB JACKIE Administration Insulin Human Lispro 0 unit 04/04/18 07:30 04/05/18 12:13 Humalog SUB-Q 3 unit ACHS JACKIE Administration Protocol Magnesium Oxide 400 mg 04/05/18 10:00 04/05/18 10:29 Mag-Ox PO 400 mg BID JACKIE Administration Nicotine 14 mg 04/04/18 23:10 04/05/18 10:29 Habitrol TD 14 mg QDAY JACKIE Administration Ondansetron HCl 4 mg 04/03/18 22:02 04/04/18 21:39 Zofran IV 4 mg Q8H PRN Administration Nausea And Vomiting Oxycodone/Acetaminophen 1 tab 04/03/18 21:56 04/05/18 07:35 Percocet 5/325 PO 1 tab Q6H PRN Administration Pain, Moderate (4-6) Pantoprazole Sodium 40 mg 04/04/18 10:00 04/05/18 10:29 Protonix PO 40 mg QDAY JACKIE Administration Sodium Chloride 10 ml 04/04/18 10:00 04/04/18 21:40 Sodium Chloride Flush Syringe 10 Ml IV 10 ml BID JACKIE Administration Sodium Chloride 10 ml 04/03/18 22:02 Sodium Chloride Flush Syringe 10 Ml IV PRN PRN LINE FLUSH
[2018-04-05 13:34] VITALS: BP 166/76
[2018-04-05] MEDS: ZOFRAN IV PRN (14:32)
--- NOTE | 2018-04-05 15:41 | Progress Note ---
Hospitalist Physical - Constitutional Vitals: Temp Pulse Resp BP Pulse Ox 97.7 F 101 H 20 166/76 94 04/05/18 08:36 04/05/18 14:12 04/05/18 14:12 04/05/18 08:36 04/05/18 08:36 Results - Labs CBC & Chem 7: 04/04/18 05:15 04/05/18 06:02 Labs: Laboratory Last Values WBC 4.1 K/mm3 (4.5-11.0) L 04/04/18 05:15 RBC 4.14 M/mm3 (3.65-5.03) 04/04/18 05:15 Hgb 12.6 gm/dl (10.1-14.3) 04/04/18 05:15 Hct 38.3 % (30.3-42.9) 04/04/18 05:15 MCV 93 fl (79-97) 04/04/18 05:15 MCH 30 pg (28-32) 04/04/18 05:15 MCHC 33 % (30-34) 04/04/18 05:15 RDW 16.8 % (13.2-15.2) H 04/04/18 05:15 Plt Count 336 K/mm3 (140-440) 04/04/18 05:15 Lymph % (Auto) 9.6 % (13.4-35.0) L 04/04/18 05:15 [place] % (Auto) 5.5 % (0.0-7.3) 04/04/18 05:15 Eos % (Auto) 0.0 % (0.0-4.3) 04/04/18 05:15 Baso % (Auto) 0.5 % (0.0-1.8) 04/04/18 05:15 Lymph # 0.4 K/mm3 (1.2-5.4) L 04/04/18 05:15 [place] # 0.2 K/mm3 (0.0-0.8) 04/04/18 05:15 Eos # 0.0 K/mm3 (0.0-0.4) 04/04/18 05:15 Baso # 0.0 K/mm3 (0.0-0.1) 04/04/18 05:15 Seg Neutrophils % 84.4 % (40.0-70.0) H 04/04/18 05:15 Seg Neutrophils # 3.5 K/mm3 (1.8-7.7) 04/04/18 05:15 Sodium 139 mmol/L (137-145) D 04/05/18 06:02 Potassium 3.6 mmol/L (3.6-5.0) 04/05/18 06:02 Chloride 90.9 mmol/L (98-107) L 04/05/18 06:02 Carbon Dioxide 36 mmol/L (22-30) H 04/05/18 06:02 Anion Gap 16 mmol/L 04/05/18 06:02 BUN 28 mg/dL (7-17) H 04/05/18 06:02 Creatinine 1.1 mg/dL (0.7-1.2) 04/05/18 06:02 Estimated GFR 48 ml/min 04/05/18 06:02 BUN/Creatinine Ratio 25 % 04/05/18 06:02 Glucose 140 mg/dL (65-100) H 04/05/18 06:02 POC Glucose 192 (70-105) H 04/05/18 11:55 Lactic Acid 1.60 mmol/L (0.7-2.0) 04/03/18 16:19 Calcium 8.4 mg/dL (8.4-10.2) 04/05/18 06:02 Phosphorus 3.60 mg/dL (2.5-4.5) 04/05/18 06:02 Magnesium 1.60 mg/dL (1.7-2.3) L 04/05/18 06:02 Total Bilirubin 0.50 mg/dL (0.1-1.2) 04/03/18 16:19 AST 59 units/L (5-40) H 04/03/18 16:19 ALT 57 units/L (7-56) H 04/03/18 16:19 Alkaline Phosphatase 87 units/L (35-129) 04/03/18 16:19 Total Creatine Kinase 88 units/L (30-135) 04/04/18 05:15 CK-MB (CK-2) 6.1 ng/mL (0.0-4.0) H 04/04/18 05:15 CK-MB (CK-2) Rel Index 6.9 (0-4) H 04/04/18 05:15 Troponin T 0.025 ng/mL (0.00-0.029) 04/04/18 05:15 NT-Pro-B Natriuret Pep 21301 pg/mL (0-900) H 04/03/18 17:36 Total Protein 7.0 g/dL (6.3-8.2) 04/03/18 16:19 Albumin 3.4 g/dL (3.9-5) L 04/03/18 16:19 Albumin/Globulin Ratio 0.9 % 04/03/18 16:19 Triglycerides 107 mg/dL (2-149) 04/03/18 16:19 Cholesterol 165 mg/dL (50-199) 04/03/18 16:19 LDL Cholesterol Direct 118 mg/dL (50-130) 04/03/18 16:19 HDL Cholesterol 51 mg/dL (40-59) 04/03/18 16:19 Cholesterol/HDL Ratio 3.23 % 04/03/18 16:19
--- NOTE | 2018-04-05 23:39 | Event Note ---
Date: 04/05/18 Patient left against medical advice.
== END 2018-04-05 16:56 | disposition left against medical advice (07) | DRG 291 ==
LOC: ED 15:45 → 4A 21:55
PROVIDERS: ADMIT Internal Medicine; ATTEND Internal Medicine
DX: I11.0 Hypertensive heart disease with heart failure (principal); J96.01 Acute respiratory failure with hypoxia; J44.1 Chronic obstructive pulmonary disease with (acute) exacerbation; E87.1 Hypo-osmolality and hyponatremia; I50.23 Acute on chronic systolic (congestive) heart failure; Z53.21 Procedure and treatment not carried out due to patient leaving prior to being seen by health care provider; E11.9 Type 2 diabetes mellitus without complications; F17.210 Nicotine dependence, cigarettes, uncomplicated; E87.5 Hyperkalemia; M19.90 Unspecified osteoarthritis, unspecified site; F41.9 Anxiety disorder, unspecified; J44.9 Chronic obstructive pulmonary disease, unspecified; Z90.49 Acquired absence of other specified parts of digestive tract; Z82.49 Family history of ischemic heart disease and other diseases of the circulatory system; Z71.6 Tobacco abuse counseling; Z79.82 Long term (current) use of aspirin; Z79.899 Other long term (current) drug therapy; Z79.51 Long term (current) use of inhaled steroids; Z79.4 Long term (current) use of insulin
CPT/HCPCS: 36415; 71045; 71275; 80048; 80053; 80061; 82140; 82550; 82553; 82962; 83735; 83880; 84100; 84132; 84484; 85025; 93005; 93010; 93306; 93970; 94640; 94760; 96365; 96367; 96375; 99406; G0378; A9270-GY; J0610; J0692; J1650; J1815; J1940; J1956; J2270; J2405; J2930; J3475; J7030; Q9967

== ENCOUNTER 2018-07-08 15:22 | Outpatient (CLI) | payer MEDICARE ==
[2018-07-15 06:24] LABS: Vitamin D, 25-OH, D2 SEE SCANNED RESULT
== END 2018-07-08 15:23 | disposition home or self-care (01) ==
LOC: LAB 15:22
PROVIDERS: ATTEND Specialist
DX: F02.80 Dementia in other diseases classified elsewhere, unspecified severity, without behavioral disturbance, psychotic disturbance, mood disturbance, and anxiety (principal); E78.00 Pure hypercholesterolemia, unspecified; J44.9 Chronic obstructive pulmonary disease, unspecified; K21.9 Gastro-esophageal reflux disease without esophagitis; I10 Essential (primary) hypertension; E11.9 Type 2 diabetes mellitus without complications; Z90.710 Acquired absence of both cervix and uterus
CPT/HCPCS: 36415; 82306; 82607; 83921; 84443; 85652; 86592